=== PATIENT | female | born 1970 | race Caucasian/White ===

== ENCOUNTER 2020-10-20 08:52 | Outpatient (REF) | payer BC, SELFPAY ==
[2020-10-23 08:43] LABS: HPV mRNA E6/E7 rflx Not Detected (Not Detected)
== END 2020-10-20 08:53 | disposition home or self-care (01) ==
LOC: HO.LAB 08:52
PROVIDERS: PCP Internal Medicine; Referring Provider Internal Medicine; Visit Provider Obstetrics & Gynecology
DX: Z01.419 Encounter for gynecological examination (general) (routine) without abnormal findings (principal)
CPT/HCPCS: 87624; 87625; 88142

== ENCOUNTER 2020-12-31 15:26 | Outpatient (REF) | payer BC, SELFPAY ==
--- NOTE | ~2020-12-31 | MM_ITS ---
EXAMINATION: MM SCREENING DIGITAL BREAST TOMOSYNTHESIS, BILATERAL CLINICAL INFORMATION: Screening. Asymptomatic. Prior history reduction mammoplasty 2012. The lifetime risk of breast cancer based on the Tyrer-Cuzick Model is 7%. COMPARISON: Mammography: 09/25/2019, 12/02/2015 TECHNIQUE: Digital breast tomosynthesis is performed in both the craniocaudal and mediolateral oblique views along with computer-aided detection (CAD). Synthesized 2D images are generated from the tomosynthesis. Additional left MLO view is provided. FINDINGS: There are scattered areas of fibroglandular density (ACR BI-RADS breast composition Category b). There are no significant masses, abnormal calcifications, or other abnormalities. Again, there are incidental cysts in the anterior breasts consistent with the prior reduction mammoplasty. Oil cyst on left has benign peripheral rim calcification. The axilla and skin contours are unremarkable. MM/MM tomosynthesis screening BI IMPRESSION: No mammographic evidence of malignancy. ASSESSMENT: BI-RADS 2: Benign RECOMMENDATION: Routine annual mammography screening. This patient's information was entered into a reminder system with a target due date for their next mammogram.
== END 2020-12-31 15:27 | disposition home or self-care (01) ==
LOC: HO.MAMMO 15:26
PROVIDERS: PCP Internal Medicine; Visit Provider Obstetrics & Gynecology
DX: Z12.31 Encounter for screening mammogram for malignant neoplasm of breast (principal)
CPT/HCPCS: 77063; 77067

== ENCOUNTER 2022-01-03 15:37 | Outpatient (REF) | payer BC, SELFPAY ==
--- NOTE | ~2022-01-03 | MM_ITS ---
EXAMINATION: MM SCREENING DIGITAL BREAST TOMOSYNTHESIS, BILATERAL CLINICAL INFORMATION: Screening. Asymptomatic. Prior reduction mammoplasty, 2012. The lifetime risk of breast cancer based on the Tyrer-Cuzick Model is 7%. COMPARISON: Mammography: 12/31/2020, 09/25/2019, 12/02/2015 TECHNIQUE: Digital breast tomosynthesis is performed in both the craniocaudal and mediolateral oblique views along with computer-aided detection (CAD). Synthesized 2D images are generated from the tomosynthesis. FINDINGS: There are scattered areas of fibroglandular density (ACR BI-RADS breast composition Category b). There is minor scarring from the reduction mammoplasty. There are no significant masses, abnormal calcifications, or other abnormalities. Parenchymal pattern is similar to prior studies. Incidental small oil cyst again noted right retroareolar region and and oil cyst anterior upper outer left breast with benign peripheral rim calcification. There are no significant changes. MM/MM tomosynthesis screening BI IMPRESSION: No mammographic evidence of malignancy. ASSESSMENT: BI-RADS 2: Benign RECOMMENDATION: Routine annual mammography screening. This patient's information was entered into a reminder system with a target due date for their next mammogram.
== END 2022-01-03 15:38 | disposition home or self-care (01) ==
LOC: HO.MAMMO 15:37
PROVIDERS: PCP Internal Medicine; Visit Provider Internal Medicine
DX: Z12.31 Encounter for screening mammogram for malignant neoplasm of breast (principal)
CPT/HCPCS: 77063; 77067

== ENCOUNTER 2022-02-16 15:05 | Outpatient (REF) | payer BC, SELFPAY ==
[2022-02-19 07:26] LABS: HPV mRNA E6/E7 rflx Not Detected (Not Detected)
== END 2022-02-16 15:06 | disposition home or self-care (01) ==
LOC: HO.LAB 15:05
PROVIDERS: PCP Internal Medicine; Visit Provider Advanced Practice Midwife
DX: Z01.419 Encounter for gynecological examination (general) (routine) without abnormal findings (principal); R23.2 Flushing; N88.9 Noninflammatory disorder of cervix uteri, unspecified; N92.6 Irregular menstruation, unspecified
CPT/HCPCS: 87624; 88142

== ENCOUNTER 2022-03-23 06:16 | Outpatient (REF) | payer BC, SELFPAY ==
--- NOTE | ~2022-03-23 | XR_ITS ---
EXAMINATION: XR HIP, RIGHT CLINICAL INFORMATION: Pain right hip. COMPARISON: None TECHNIQUE: Two views of the right hip. FINDINGS: The right hip joint space is maintained normal with moderate periarticular spurring. No bony erosive changes. There is no visible acute fracture or dislocation. The soft tissues are normal. XR/XR hip RT min 2V IMPRESSION: Moderate periarticular spurring without bony erosive changes. No visible acute fracture or dislocation seen.
[2022-03-23 11:15] LABS: MANUAL DIFF FLAG NO
[2022-03-23 11:21] LABS: Basophils Percent Auto 0.5 % (0-2); Eosinophils Absolute Auto 0.2 X10*3/uL (0.0-0.4); Eosinophils Percent Auto 1.9 % (0-4); Hematocrit 42.6 % (37.0-47.0); Hemoglobin 14.3 g/dl (12.0-16.0); Imm Gran Abs Auto 0.02 X10*3/uL (0.00-0.03); Imm Gran Pct Auto 0.3 % (0.0-0.4); Lymphocytes Absolute Auto 2.3 X10*3/uL (1.2-4.9); Mean Corpuscular HGB Conc 33.6 g/dl (31.0-35.0); Mean Corpuscular Hemoglobin 29.9 pg (27.0-33.0); Mean Corpuscular Volume 89.1 fL (80.0-98.0); Mean Platelet Volume 10.3 fL (9.4-12.3); Monocytes Absolute Auto 0.6 X10*3/uL (0.1-1.2); Monocytes Percent Auto 7.7 % (2-11); Neutrophils Absolute Auto 4.7 x10*3/uL (2.0-8.3); Neutrophils Percent Auto 60.6 % (45-73); Platelet Count 361 X10*3/uL (160-400); Red Blood Count 4.78 X10*6/uL (4.20-5.50); Red Cell Distribution Width 12.6 % (11.0-16.0); White Blood Count 7.8 X10*3/uL (4.8-10.8)
[2022-03-23 11:50] LABS: Alanine Aminotransferase 25 U/L (0-31); Albumin Level 4.3 g/dL (3.5-5.0); Alkaline Phosphatase 101 U/L (39-117); Anion Gap 13 (12-20); Aspartate Amino Transferase 18 U/L (5-31); Bilirubin Total 0.7 mg/dL (0.0-1.0); Blood Urea Nitrogen 13 mg/dL (9-16); Calcium 9.7 mg/dL (8.4-10.2); Carbon Dioxide 26 mmol/L (22-29); Chloride 106 mmol/L (96-108); Cholesterol 200 mg/dL; Estimated Glomerular Filt Rate > 60; Glucose Fasting 98 mg/dL (60-99); HDL Cholesterol 48 mg/dL; LDL Cholesterol Calculated 130 mg/dl; Potassium 4.6 mmol/L (3.3-5.1); Sodium 140 mmol/L (135-145); Total Protein 7.5 g/dL (6.5-8.0); Triglycerides 110 mg/dL
[2022-03-23 11:59] LABS: TSH reflex Free T4 1.49 uIU/mL (0.32-4.0); Vitamin D 25-OH Total 17.9 ng/mL (>30)
[2022-03-23 12:30] LABS: Folate 7.7 ng/mL (> or = 4.0); Vitamin B12 259 pg/mL (200-900)
== END 2022-03-23 06:17 | disposition home or self-care (01) ==
LOC: HO.HMGCX 06:16
PROVIDERS: Visit Provider Nurse Practitioner Family
DX: Z13.220 Encounter for screening for lipoid disorders (principal); Z13.29 Encounter for screening for other suspected endocrine disorder; M25.551 Pain in right hip; Z76.89 Persons encountering health services in other specified circumstances
CPT/HCPCS: 36415; 73502; 80053; 80061; 82306; 82607; 82746; 84443; 85025

== ENCOUNTER 2022-05-23 15:44 | Outpatient (RCR) | payer BC, SELFPAY ==
--- NOTE | 2022-05-23 16:52 | MHC.PT.EP ---
[facility] [place] Office [place] Office [place] Office [address] [phone] F: [phone] F: [phone] F: [phone] F: [phone] Physical Therapy Plan of Care Date of Evaluation: Date of Surgery: n/a Diagnosis: R hip pain Assessment: Patient is a 51 year old female presenting to PT with complaints of pain in her R hip. Pt reports onset of pain began about 5 years ago with worsening in the last 7 months due to insidious onset. She presents today with pain, ROM, hip strength, and gait mechanics. 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 Clinical presentation today is most consistent with signs and sx associated with R hip pain. Pt is ELKIN candidate and is meeting with her surgeon to scheduled this in the coming weeks. Reviewed expectations for post op as well as HEP to work on preop and pt with great understanding and ability to demonstrate HEP well with ability to teach it back to me today. All of patient's questions were answered today. Skilled PT is not indicated at this time as pt is getting a ELKIN and would prefer to work on these exercises on her own preop. Pt will benefit from skilled PT following her surgery. Frequency and Duration: The patient will be seen n/a Short Term Goals: Pt will demonstrate independence in HEP as evidence by ability to teach it back in 1 session. MET 05/23/2022 Longterm Goals: Treatment Plan: Modalities to reduce pain, spasms and effusion. Manual therapy to restore motion and function. Therapeutic exercise to improve strength and flexibility. Neuromuscular re-education for posture and balance. Therapeutic activities to return to functional activities of daily living. Electronically signed by: Nneka Hutchins, PT, DPT, ATC Please sign and return to therapist. Thank you for your referral.
--- NOTE | 2022-06-23 17:24 | MHC.PT.DC ---
[facility] [place] Office [place] Office [place] Office [address] [phone] F: [phone] F: [phone] F: [phone] F: [phone] Physical Therapy Discharge Report Diagnosis: R hip pain Date of Surgery: n/a Date of Evaluation: 05/23/22 Date of Discharge: 06/23/22 Treatments to Date: 1 Cancellations to Date: 0 No Shows to Date: 0 Discharge Status: Discharge Summary: Pt has not followed up since the evaluation as she was meeting with a surgeon. 30 days has passed and pt has not reached out. Status unknown at this time. Electronically signed by: Nneka Hutchins, PT, DPT, ATC Please sign and return to therapist. Thank you for your referral.
== END 2022-06-23 17:24 | disposition home or self-care (01) ==
LOC: HO.PTCHIC 15:44
PROVIDERS: PCP Nurse Practitioner Family; Visit Provider Nurse Practitioner Family
DX: M25.551 Pain in right hip (principal)
CPT/HCPCS: 97110; 97161

== ENCOUNTER 2023-01-10 14:51 | Outpatient (REF) | payer BC, SELFPAY ==
--- NOTE | ~2023-01-10 | MM_ITS ---
EXAMINATION: MM SCREENING DIGITAL BREAST TOMOSYNTHESIS, BILATERAL CLINICAL INFORMATION: Screening. Asymptomatic. The lifetime risk of breast cancer based on the Tyrer-Cuzick Model is 6.5%. COMPARISON: Mammography: January 03, 2022 and studies dating back to November 27, 2014 TECHNIQUE: Digital breast tomosynthesis is performed in both the craniocaudal and mediolateral oblique views along with computer-aided detection (CAD). Synthesized 2D images are generated from the tomosynthesis. FINDINGS: The breasts are almost entirely fatty (ACR BI-RADS breast composition Category a). There are no new significant masses, abnormal calcifications, or other abnormalities. Postsurgical changes seen bilaterally related to reduction mammoplasty. MM/MM tomosynthesis screening BI IMPRESSION: No significant changes from prior exam. ASSESSMENT: BI-RADS 2: Benign RECOMMENDATION: Routine annual mammography screening. This patient's information was entered into a reminder system with a target due date for their next mammogram.
== END 2023-01-10 14:52 | disposition home or self-care (01) ==
LOC: HO.MAMMO 14:51
PROVIDERS: PCP Internal Medicine; Visit Provider Internal Medicine
DX: Z12.31 Encounter for screening mammogram for malignant neoplasm of breast (principal)
CPT/HCPCS: 77063; 77067

== ENCOUNTER → 2023-02-21 15:10 | Outpatient (BNVA) | payer BC, SELFPAY | PROVIDERS: PCP Internal Medicine; Visit Provider Advanced Practice Midwife | DX: Z01.419 Encounter for gynecological examination (general) (routine) without abnormal findings (principal); N89.8 Other specified noninflammatory disorders of vagina | CPT/HCPCS: 99396 ==

== ENCOUNTER 2023-05-29 14:49 | Outpatient (AMB) | payer BC, SELFPAY ==
--- NOTE | 2023-05-29 14:56 | A.OFFVIS_ITS ---
Intake Vital Signs 05/29/23 14:57 Height 4 ft 10 in Weight 185 lb BMI 38.7 BP 121/78 Blood Pressure Location Lt brachial Position Sitting Pulse 102 H Intake Visit Reasons: pre colonoscopy screening Intake Note: Patient new consult for 1st pre colonoscopy screening. Patient denies any GI issues. Wiener Packer Required: No Accompanied by: Self / Same As Patient Allergies No Known Allergies Allergy (Verified 05/29/23 14:56) HPI HPI Comments History of Present Illness Details A 52 y/o female referred for index screening colonoscopy No GI complaints appetite is good Bowels normal- No cardiac or respiratory No nausea, vomiting, hematemesis, hematochezia fever chills PFSH Medical History Encounter to establish care Obesity Osteoarthritis of right hip Right hip pain Vaginal lesion Surgical History H/O right knee surgery History of bilateral breast reduction surgery History of hip replacement Hx of cholecystectomy Family History Father Prostate cancer Heart disease Mother Skin cancer Social History Housing: House Alcohol intake: current Alcohol intake frequency: holidays/special occasions only Patient Tobacco Use Status: Former Tobacco user e-Cigarette/Vaping Use: Never Used Second Hand Smoke Exposure: Yes service: No Current occupational status: employed 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 Sexual orientation: Straight/Heterosexual Gender identity: Female Cognitive needs: No Hearing needs: No Vision needs: Yes (Glasses) Female Reproductive History Menstrual Age of Menarche: 13 Review of Systems Const All systems reviewed & are unremarkable except as noted in HPI and below Card Denies chest pain and Denies dyspnea Resp Denies dyspnea GI Reports no additional complaints, Denies abdominal pain and Denies heartburn Physical Exam Vital Signs: Last Vital Signs Pulse 102 H 05/29/23 14:57 BP 121/78 05/29/23 14:57 BMI result Body Mass Index 38.7 Const General: cooperative, healthy appearing, comfortable, no acute distress and well groomed Orientation/consciousness: patient oriented x3 Limitations: no limitations Resp Effort & Inspection: normal respiratory effort and able to speak in complete sentences Auscultation: clear to auscultation bilaterally and no wheezes Cardio Rate: tachycardic (apr 100) Rhythm: regular rhythm Heart sounds: S1 normal heart sound present and S2 normal heart sound present Skin General skin exam: no rashes or lesions noted Neuro General: patient oriented x3 Extrem General: Yes full ROM Psych Appearance: grossly normal and well kempt Mental Status: mental status grossly normal Speech and movement: Normal speech and movement present Affect: normal affect Attitude: cooperative Thought process: Normal thought process present Thought content: Normal thought content present Assessment & Plan Assessment & Plan (1) Screening for colon cancer: Code(s): Z12.11 - Encounter for screening for malignant neoplasm of colon Plan: Please schedule with FEMALE pls index screening- MG prep Plan Index screening colonoscopy -MiraLax Gatorade split prep-with female provider Orders: Orders Colonoscopy - GI Use Only 05/29/23 Z12.11 - Encounter for screening for malignant neoplasm of colon Medications: New bisacodyl (Dulcolax (bisacodyl)) Take 4 tablets by mouth at 12:00pm the day before your procedure. 20 mg (4 x 5 mg) PO ONCE 1 day 4 tabs 0RF colonoscopy prep Z12.11 - Encounter for screening for malignant neoplasm of colon polyethylene glycol 3350 (Miralax) Take as directed by mouth the day before your procedure. 238 grams PO ONCE 1 day PRN 238 grams 0RF laxative effect Patient Instructions: Index screening colonoscopy MiraLax Gatorade prep and literature given Needs escort due to anesthesia Reviewed rare risks, agrees to proceed Encourage to call questions or concerns Appreciate the opportunity assist in care as pleasant patient Coding Level of Care Code New Pt Level 3 (27391) Diagnoses Screening for colon cancer Z12.11 Time Spent (min) 20
[2023-05-29 14:57] VITALS: BP 121/78; PULSE 102; BMI 38.7
== END 2023-05-29 16:38 | disposition home or self-care (01) ==
PROVIDERS: PCP Internal Medicine; Visit Provider Physician Assistant
DX: Z01.818 Encounter for other preprocedural examination (principal); Z12.11 Encounter for screening for malignant neoplasm of colon
CPT/HCPCS: S0285

== ENCOUNTER → 2023-05-29 14:49 | Outpatient (BNVA) | payer BC, SELFPAY | PROVIDERS: PCP Internal Medicine; Visit Provider Physician Assistant ==

== ENCOUNTER 2023-10-06 10:39 | Day surgery (SDC) | payer BC, SELFPAY ==
--- NOTE | 2023-10-05 10:27 | HO.ANESPROP2 ---
Documented by User: Shawanda Barillas NP 10/05/23 10:27 HPI - Anesthesia Eval Consult details Narrative: 53yo F for Colonoscopy PMFSH Active Problems Active Problems: All Active Problems (Updated 03/31/23 @ 16:27 by CONOR Yang) Screening for colon cancer (Acute) Vaginal lesion (Acute) Adult general medical exam (Acute) Low vitamin D level (Acute) Obesity (BMI 35.0-39.9 without comorbidity) (Acute) Screening for diabetes mellitus (Acute) Screening for hyperlipidemia (Acute) Screening for hypothyroidism (Acute) Past Medical History Medical History Vaginal lesion Osteoarthritis of right hip Encounter to establish care Right hip pain Obesity Family History Family History Father Prostate cancer Heart disease Mother Skin cancer Surgical History Surgical History Hx of cholecystectomy History of hip replacement H/O right knee surgery History of bilateral breast reduction surgery Social History Social History Housing: House Alcohol intake: current Alcohol intake frequency: holidays/special occasions only Patient Tobacco Use Status: Former Tobacco user e-Cigarette/Vaping Use: Never Used Second Hand Smoke Exposure: Yes Are you DNR?: No Advance Directives: No Advance Directives Information Provided: Yes Nutrition Risks: No Nutritional Risk service: No Current occupational status: employed 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 Sexual orientation: Straight/Heterosexual Gender identity: Female Cognitive needs: No Hearing needs: No Vision needs: Yes (Glasses) Meds Allergies Allergy/AdvReac Type Severity Reaction Status Date / Time No Known Allergies Allergy Verified 05/29/23 14:56 Assessment and Plan Assessment Anesthesia Assessment: Chart Reviewed Documented by User: Prabha Patterson MD 10/06/23 12:01 PMFSH Active Problems Active Problems: All Active Problems (Updated 10/06/23 @ 11:51 by Prabha Patterson MD ) Screening for colon cancer (Acute) Vaginal lesion (Acute) Adult general medical exam (Acute) Low vitamin D level (Acute) Obesity (BMI 35.0-39.9 without comorbidity) (Acute) Screening for diabetes mellitus (Acute) Screening for hyperlipidemia (Acute) Screening for hypothyroidism (Acute) Past Medical History Medical History Vaginal lesion Osteoarthritis of right hip Encounter to establish care Right hip pain Obesity Family History Family History Father Prostate cancer Heart disease Mother Skin cancer Family history of problems with anesthesia: No Surgical History Surgical History Hx of cholecystectomy History of hip replacement H/O right knee surgery History of bilateral breast reduction surgery History of Problems with Anesthesia: Yes (PONV.) Social History Social History Housing: House Alcohol intake: current Alcohol intake frequency: holidays/special occasions only Patient Tobacco Use Status: Former Tobacco user e-Cigarette/Vaping Use: Never Used Second Hand Smoke Exposure: Yes Are you DNR?: No Advance Directives: No Advance Directives Information Provided: Yes Nutrition Risks: No Nutritional Risk service: No Current occupational status: employed 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 Sexual orientation: Straight/Heterosexual Gender identity: Female Cognitive needs: No Hearing needs: No Vision needs: Yes (Glasses) Meds Allergies Allergy/AdvReac Type Severity Reaction Status Date / Time No Known Allergies Allergy Verified 05/29/23 14:56 Exam Height,Weight and Vital Signs: Height 4 ft 11 in Weight 83.915 kg Vital Signs Temp Pulse Resp BP Pulse Ox O2 Del Method 10/06/23 11:49 98.6 F 100 18 124/91 H 96 Room Air Airway Mallampati Class: III TM Dist: >3cm Neck ROM: Full Loose/Missing/Broken Teeth: No (Denies broken, loose, missing teeth) Heart: RRR Lungs: CTAB Assessment and Plan Assessment Anesthesia Assessment: Anesthesia Plan Discussed Final Anesthetic Review Family History of Problems with Anesthesia: No History of Problems with Anesthesia: Yes (PONV.) NPO: Yes (7 hours. Finished prep about 5:15am) ASA Class: II Final Preanesthetic Review: No Changes in Pt Med Stat, Meds/Allgs Chart Reviewed, Consent Obtained/Reviewed and Anes Risks/Benef Reviewed Patient Risk: Intermediate Procedure Risk: Low Assessment/Block/Sedation in SS: Assess/Block/Sedation-SS Anesthetic Plan Anesthetic Plan: MAC: Disposition: Standard PACU
[2023-10-06 11:24] VITALS: BMI 37.4
[2023-10-06 11:49] VITALS: BP 124/91; PULSE 100; RESP 18; TEMP 37; O2SAT 96
--- NOTE | 2023-10-06 11:49 | MHC.SHP ---
Pre-Procedural Eval Section A Date of Service: 10/06/23 The patient is an INPATIENT: No The History & Physical has been completed within 30 days and I have reviewed it.: No Section B Chief Complaint: Colon cancer screening Relevant Family History (Specify if Yes): No Relevant Social History: Tobacco Use (former smoker) Present Medications: see Short Stay Collaborative assessment Medical History: Significant History (Obesity Osteoarthritis of right hip Right hip pain Vaginal lesion) History of Previous Operations: Relevant previous surgery/procedure and date(s) (H/O right knee surgery History of bilateral breast reduction surgery History of hip replacement Hx of cholecystectomy) Allergies: Allergies Allergy/AdvReac Type Severity Reaction Status Date / Time No Known Allergies Allergy Verified 05/29/23 14:56 Plan Diagnosis/Plan: Unchanged I have reviewed the history and physical and performed a pertinent physical examination on my patient. No changes have occurred unless specified. Time Spent With Patient Time: Total time managing care of this patient today ____ minutes.
--- NOTE | 2023-10-06 11:54 | W.PM.OPN ---
Operative Note Operative Note Date of Service: 10/06/23 Narrative: COLONOSCOPY TILL CECUM WITH WITH BIOPSIES Pre-op diagnosis: Colon cancer screening (1st colonoscopy) Post-op diagnosis:? Colon polyps, hemorrhoids Endoscopist:? Nate Laguerre MD Anesthesia:?MAC Consent: Indications for the procedure and potential complications of bleeding, perforation, reaction to medications and missed diagnosis were discussed with the patient and informed consent was obtained. Instrument: Olympus PCF H 190 L variable stiffness pediatric colonoscope and Olympus CF 160 L adult colonoscope Monitoring: Vital signs and clinical assessment, intermittent blood pressure monitoring, continuous EKG monitoring, Pulse oximetry and Carbon Dioxide monitoring were done throughout the procedure. Please see anesthesia flowsheet. Colon withdrawl time was 21 minutes. Procedure: The patient was placed in the left lateral decubitis position and pre-procedure medications were administered. After a digital rectal examination of the ano-rectum, the video colonoscope was inserted into the rectum and advanced through the colon to the transvers colon. It was not possible to advance further due to looping despite changing pt's position. Pediatric colonoscope was removed and an adult colonoscope was inserted into the rectum advanced through the colon to the cecum. The colonoscope was slowly withdrawn in a retrograde panoramic fashion and the colon mucosa was carefully examined including a retroflexed view of the rectum. Findings and interventions are described below. Procedure Difficulty: Colon was long and tortuous and there was recurrent loop formation. Patient was placed in the supine position with application of abdominal pressure to intubate the cecum Findings: Terminal Ileum: Not evaluated Cecum: Normal Ascending Colon: Normal Transverse Colon: Normal Descending Colon: A 4-5 mm sessile polyp removed with a cold bx Sigmoid Colon: A 3-4 mm sessile polyp - removed with a cold biopsy Rectum: A 3-4 mm diminutive appearing polyp - removed with a cold biopsy Ano-rectum: Small internal hemorrhoids Colon preparation: Excellent Impression and Post Procedure Diagnosis: Colonoscopy Findings: Three small polyps removed Small hemorrhoids on retroflexed exam. Plan: I will send a letter with pathology results Repeat Colonoscopy interval based on path results - in 3-5 years if polyps are adenomatous and 10 years if polyps are hyperplastic. Above findings were reviewed with the patient and colon polyps handout was given in the discharge area
[2023-10-06 12:57] VITALS: BP 91/44; PULSE 99; RESP 16; TEMP 36.1; O2SAT 95
[2023-10-06 13:12] VITALS: BP 100/63; PULSE 80; RESP 18; TEMP 36.1; O2SAT 99
== END 2023-10-06 14:30 | disposition home or self-care (01) ==
PROVIDERS: PCP Nurse Practitioner Family; Visit Provider Internal Medicine Gastroenterology
PROC: 0DJD8ZZ Inspection of Lower Intestinal Tract, Via Natural or Artificial Opening Endoscopic (ICD-10-PCS; CPT 45378; principal; 2023-10-06 11:50)
DX: Z12.11 Encounter for screening for malignant neoplasm of colon (principal); K63.5 Polyp of colon; K64.8 Other hemorrhoids; K56.2 Volvulus; Z87.891 Personal history of nicotine dependence
CPT/HCPCS: 45380; 88305; J2405; J2704

== ENCOUNTER → 2023-10-06 10:39 | Outpatient (BNV) | payer BC, SELFPAY | PROVIDERS: PCP Nurse Practitioner Family; Visit Provider Internal Medicine Gastroenterology | DX: Z12.11 Encounter for screening for malignant neoplasm of colon (principal); D12.4 Benign neoplasm of descending colon; D12.5 Benign neoplasm of sigmoid colon; D12.8 Benign neoplasm of rectum; K64.8 Other hemorrhoids | CPT/HCPCS: 45380 ==

== ENCOUNTER 2024-02-15 15:07 | Outpatient (REF) | payer BC, SELFPAY ==
--- NOTE | ~2024-02-15 | MM_ITS ---
EXAMINATION: MM SCREENING DIGITAL BREAST TOMOSYNTHESIS, BILATERAL CLINICAL INFORMATION: Screening. Asymptomatic. The patient is status post bilateral breast reduction. COMPARISON: Mammography: This study is compared with prior exams dating back to TECHNIQUE: Digital breast tomosynthesis is performed in both the craniocaudal and mediolateral oblique views along with computer-aided detection (CAD). Synthesized 2D images are generated from the tomosynthesis. FINDINGS: The breasts are almost entirely fatty (ACR BI-RADS breast composition Category a). There are no significant masses, abnormal calcifications, or other abnormalities. Bilateral post reduction changes are present. MM/MM tomosynthesis screening BI IMPRESSION: No mammographic evidence of malignancy. ASSESSMENT: BI-RADS BI-RADS 2 - Benign Findings RECOMMENDATION: Routine annual mammography screening. 1 year F/U This examination should not preclude the clinical evaluation of a suspicious palpable abnormality. This patient's information was entered into a reminder system with a target due date for their next mammogram.
== END 2024-02-15 15:08 | disposition home or self-care (01) ==
LOC: HO.MAMMO 15:07
PROVIDERS: PCP Internal Medicine; Visit Provider Internal Medicine
DX: Z12.31 Encounter for screening mammogram for malignant neoplasm of breast (principal)
CPT/HCPCS: 77063; 77067

== ENCOUNTER → 2024-02-15 15:30 | Outpatient (BNV) | payer BC, SELFPAY | PROVIDERS: PCP Internal Medicine; Visit Provider Radiology Diagnostic Radiology | DX: Z12.31 Encounter for screening mammogram for malignant neoplasm of breast (principal) | CPT/HCPCS: 77063; 77067 ==

== ENCOUNTER 2024-04-10 14:56 | Outpatient (AMB) | payer BC, SELFPAY ==
--- NOTE | 2024-04-10 15:01 | A.OFFPC_ITS ---
Vital Signs 04/10/24 15:04 Height 4 ft 11 in Weight 195 lb 6 oz BMI 39.5 BP 120/62 Blood Pressure Location Lt brachial Position Sitting Pulse 82 Pulse Source Pulse Oximeter Pulse Oximetry (%) 96 Oxygen Delivery Method Room Air Intake Visit Reasons: annual exam/transfer care Swathi [facility] Note: Patient is here today for a physical and MAR[employer] from [employer] Required: No Alarm Mechanism Adjuster: Not Required per policy Accompanied by: Self / Same As Patient Allergies No Known Allergies Allergy (Verified 04/10/24 15:04) Tobacco use date assessed: 04/10/24 Dental Screening Dental Screen Date: 04/10/24 Did you have a dental visit in the last 12 months?: Yes Did you have a dental problem in the last 6 months where you did not have access to dental care?: No Was dental information given to patient?: Patient has dentist HPI annual exam/transfer care Swathi HPI Details 53-year-old female presents to the offic e to discuss her chronic medical conditions. Patient currently on no medications. She is compliant with diet. Continues to work. Her last colonoscopy was in 2022 at [facility]. [facility] Medical History Vaginal lesion Osteoarthritis of right hip Encounter to establish care Right hip pain Obesity Surgical History Hx of cholecystectomy History of hip replacement H/O right knee surgery History of bilateral breast reduction surgery Family History Father Prostate cancer Heart disease Mother Skin cancer Social History Housing: House Alcohol intake: current Alcohol intake frequency: holidays/special occasions only Patient Tobacco Use Status: Former Tobacco user e-Cigarette/Vaping Use: Never Used Second Hand Smoke Exposure: Yes service: No Current occupational status: employed 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 1. Little interest or pleasure in doing things: not at all 2. Feeling down, depressed, or hopeless: not at all 3. Trouble falling or staying asleep, or sleeping too much: not at all 4. Feeling tired or having little energy: not at all 5. Poor appetite or overeating: not at all 6. Feeling bad about yourself - or that you are a failure or have let yourself or your family down: not at all 7. Trouble concentrating on things, such as reading the newspaper or watching television: not at all 8. Moving or speaking so slowly that other people could have noticed. Or the opposite - being so fidgety or restless that you have been moving around a lot more than usual: not at all 9. Thoughts that you would be better off or of hurting yourself in some way: not at all Total score: 0 Depression Screening Interpretation: Negative Depression Screening Done: Yes Source: Developed by Drs. Kiel Merritt, Светлана Cooley, Babar Cox and colleagues, with an educational carrie from [employer]. Thrive Questionnaire Date Thrive assessed: 04/10/24 I am a: Patient What is your living situation today?: I have a steady place to live Within the past 12 months, did the food you bought not last and you didn't have the money to get more?: Never true Within the past 12 months, did you worry whether your food would run out before you got money to buy more?: Never true Do you have trouble paying for medicines?: No Do you have trouble getting transportation to medical appointments?: No Do you have trouble paying your heating and electricity bill?: No Do you have trouble taking care of your child, family member or friend?: No Do you have trouble with day-to-day activities such as bathing, preparing meals, shopping, managing finances, etc.?: No Are you currently unemployed and looking for a job?: No Are you interested in more education?: No Currently or been in a relationship where the following occur: no concerns reported THRIVE Score: 0 AUDIT C Alcohol Use Questionnaire (AUDIT-C) 1. How often do you have a drink containing alcohol?: Monthly or less 2. How many drinks containing alcohol do you have on a typical day when you are drinking?: 1 or 2 Total Score: 1 BRY-7 AMB Questionnaire BRY-7 Date BRY - 7 assessed: 04/10/24 Feeling nervous, anxious, or on edge: 0 = Not at all Not being able to stop or control worryin = Not at all Worrying too much about different things: 0 = Not at all Trouble relaxin = Not at all Being so restless that it is hard to sit still: 0 = Not at all Becoming easily annoyed or irritable: 0 = Not at all Feeling afraid as if something awful might happen: 0 = Not at all Total BRY-7 score (0-4 normal; 5-9 mild; 10-14 moderate; 15-21 severe): 0 Source: Developed by Drs. Kiel Merritt, Светлана Cooley, Babar Cox and colleagues, with an educational carrie from [employer]. Physical exam (Primary Care) Vital Signs: Last Vital Signs Pulse 82 04/10/24 15:04 BP 120/62 04/10/24 15:04 Pulse Ox 96 04/10/24 15:04 Oxygen Delivery Method Room Air 04/10/24 15:04 Care Plan Goal for BP management: Blood pressure is in range. Continue current medications. BMI result Body Mass Index 39.5 BMI Assessment/Plan discussion: High (1 lb per week weight loss suggested.) BMI High, discussed plan: lifestyle, weight reduction and dietary Tobacco/Smoking Status: Tobacco use Status Tobacco use date assessed 04/10/24 04/10/24 15:08 Patient Tobacco Use Status Former Tobacco user 04/10/24 15:01 e-Cigarette/Vaping Use Never Used 04/10/24 15:01 PHQ-9: PHQ-9 Score PHQ-9: Total score 0 04/10/24 15:08 Depression Screening Interpretation: Negative Thrive Assessment: Date of Thrive Assessment Date Thrive assessed 04/10/24 04/10/24 15:08 Currently or been in a relationship where the following occur: no concerns reported Const General: cooperative and healthy appearing Nutritional Appearance: well nourished Orientation/consciousness: patient oriented x3 Limitations: no limitations HENMT Head: Yes normal to inspection Eyes General: appearance normal, both eyes and all related structures Neck Neck: Yes normal visual inspection Chest Chest palpation & inspection: normal palpation of entire chest wall Resp Effort & Inspection: normal respiratory effort Neuro General: patient oriented x3 Assessment and Plan Assessment & Plan (1) Obesity (BMI 35.0-39.9 without comorbidity): Code(s): E66.9 - Obesity, unspecified Plan: Counseling on the importance of diet and exercise done. Blood work has been ordered. Will call with the results. Orders: Orders Basic Metabolic Panel Today E66.9 - Obesity, unspecified Liver Panel Today E66.9 - Obesity, unspecified Lipid Panel Today E66.9 - Obesity, unspecified Thyroid Stimulating Hormone Today E66.9 - Obesity, unspecified UA and rflx microscopic Today E66.9 - Obesity, unspecified Coding Level of Care Code Est Pt Level 4 (26426) Complex EM visit Add On G2211 Diagnoses Obesity (BMI 35.0-39.9 without comorbidity) E66.9
[2024-04-10 15:04] VITALS: BP 120/62; PULSE 82; O2SAT 96; BMI 39.5
== END 2024-04-10 15:46 | disposition home or self-care (01) ==
PROVIDERS: PCP Internal Medicine; Visit Provider Internal Medicine
DX: E66.9 Obesity, unspecified (principal); Z68.39 Body mass index [BMI] 39.0-39.9, adult
CPT/HCPCS: 99214; 99396

== ENCOUNTER 2024-07-05 08:09 | Outpatient (REF) | payer BC, SELFPAY ==
[2024-07-05 10:08] LABS: Appearance Urine Cloudy; Color Urine Yellow; Glucose Urine UA Negative (Negative); Leukocyte Esterase Urine Large (3+) (Negative); Nitrite Urine Negative (Negative); PH 5.5 (5.0-9.0); Specific Gravity - Urine 1.015 (1.005-1.025); UMIC TRIGGER UA YES; Urine Blood Trace (Negative); Urine Ketones Negative (Negative); Urine Protein Trace mg/dL (Neg-Trace)
[2024-07-05 10:31] LABS: Bacteria Urine 2+ (None Seen); RBC Urine 0-2 /HPF (0-2); Renal Epithelial Cells Urine Present; Squamous Epithelial Cell Urine >20 /HPF (0-2); Transitional Epi Cells Urine Present; WBC Urine >50 /HPF (0-5)
[2024-07-05 10:55] LABS: Alanine Aminotransferase 12 U/L (0-31); Albumin Level 4.3 g/dL (3.5-5.0); Alkaline Phosphatase 103 U/L (39-117); Anion Gap 12 (12-20); Aspartate Amino Transferase 16 U/L (5-31); Bilirubin Direct 0.2 mg/dL (0.0-0.5); Bilirubin Total 0.5 mg/dL (0.0-1.0); Blood Urea Nitrogen 17 mg/dL (9-16); Calcium 9.6 mg/dL (8.4-10.2); Carbon Dioxide 25 mmol/L (22-29); Chloride 108 mmol/L (96-108); Cholesterol 184 mg/dL (<200); Estimated Glomerular Filt Rate > 60; Glucose Random 94 mg/dL (60-115); HDL Cholesterol 51 mg/dL (>40); LDL Cholesterol Calculated 114 mg/dL (<100); Potassium 4.2 mmol/L (3.3-5.1); Sodium 141 mmol/L (135-145); Thyroid Stimulating Hormone 1.83 uIU/mL (0.32-4.0); Total Protein 7.8 g/dL (6.5-8.0); Triglycerides 96 mg/dL (<150)
== END 2024-07-05 08:10 | disposition home or self-care (01) ==
LOC: HO.HMGCLDS 08:09
PROVIDERS: PCP Internal Medicine; Visit Provider Internal Medicine
DX: Z00.00 Encounter for general adult medical examination without abnormal findings (principal); Z13.220 Encounter for screening for lipoid disorders; Z13.29 Encounter for screening for other suspected endocrine disorder; Z13.1 Encounter for screening for diabetes mellitus
CPT/HCPCS: 36415; 80048; 80061; 80076; 81001; 84443

== ENCOUNTER 2024-12-20 17:17 | Emergency (ER) | payer BC, SELFPAY ==
--- NOTE | ~2024-12-20 | CT_ITS ---
CLINICAL HISTORY: post op sob ?PE CT angiography chest with contrast. With MIP MPR Postprocessing. Comparison: None Findings: No central pulmonary embolism. Minimal subsegmental atelectasis. No pneumothorax or pleural effusion. Heart size is at the upper limits of normal. Nonenlarged mediastinal lymphadenopathy. Mild fat deposition in the imaged liver. Gallbladder is surgically absent. No acute osseous abnormality. IMPRESSION: 1. No central pulmonary embolism. 2. Mild bibasilar atelectasis. This document has been electronically signed by: Garth Blackwood MD on 12/20/2024 21:54:38
[2024-12-20 17:21] VITALS: BP 150/92; PULSE 117; RESP 22; TEMP 36.5; O2SAT 99; BMI 38.0
--- NOTE | 2024-12-20 17:21 | ED.GENADULT ---
HPI - General Adult General Chief complaint: Dyspnea Stated complaint: CAT Scan ordered Time Seen by Provider: 12/20/24 21:08 Source: patient Mode of arrival: ambulatory Limitations: no limitations History of Present Illness ED Provider: HPI narrative: Patient is status post left hip replaced on 5 weeks ago ambulatory as such for last 1 week noticed shortness a breath even on mild exertion no wheezing no leg swelling patient has had Doppler done of the left leg which was negative for DVT patient is saturating 99% at room air not in any distress but feels short winded when she walks no cough no chest pain Related Data Home Medications ?Medication ?Instructions ?Recorded ?Confirmed No Known Home Meds 04/10/24 04/10/24 Allergies Allergy/AdvReac Type Severity Reaction Status Date / Time No Known Allergies Allergy Verified 12/20/24 17:27 Review of Systems Review of Systems: Yes all other systems are reviewed and are negative PMFSH Past Medical History Medical History Vaginal lesion Osteoarthritis of right hip Encounter to establish care Right hip pain Obesity Surgical History Hx of cholecystectomy History of hip replacement H/O right knee surgery History of bilateral breast reduction surgery Family History Family History Father Prostate cancer Heart disease Mother Skin cancer Social History Social History Housing: House Alcohol intake: current Alcohol intake frequency: holidays/special occasions only Patient Tobacco Use Status: Former Tobacco user e-Cigarette/Vaping Use: Never Used Second Hand Smoke Exposure: Yes Advance Directives Date on File: 04/21/21 service: No Current occupational status: employed 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 Oriented X3. No acute distress. Eyes: PERRLA, No Nystagmus ENT: Pharynx normal. Oral Mucosa moist Neck: Normal inspection. Neck supple. CVS: Normal heart rate and rhythm. Pulses normal. Respiratory: No respiratory distress. Equal air entry bilateral, no wheezing/rales/rhonchi Abdomen: Soft and nontender. Bowel sounds are present, no mass palpable, no CVA tenderness Skin: Skin warm and dry. Normal skin color. Normal skin turgor. Extremities: No lower extremity edema. No calf tenderness Neuro: Oriented X 3. No motor deficit. No sensory deficit.No cerebellar signs , cranial nerves II-XII intact Course Course Course Narrative: 54-year-old female with a history of morbid obesity, osteoarthritis, now status post right total hip replacement 5 weeks ago, presents from the orthopedic office given concern for PE. Patient was noted to be tachycardic and short of breath during her postop visit, she was sent here by her surgeon to rule out PE. She had a DVT study as an outpatient, it was negative. Patient denies chest pain. We will be screening basic labs, troponin BNP, D-dimer and EKG. The patient is stable and can return to the waiting room pending her full medical assessment. Medications Administered Discontinued Medications Generic Name Dose Route Start Last Admin Trade Name Freq PRN Reason Stop Dose Admin Iohexol 65 ml 12/20/24 21:35 12/20/24 21:36 Iohexol 350 Mg/Ml 100 Ml Infus..Btl IV 12/20/24 21:36 65 ml ONCE ONE Administration Medical Decision Making Medical Decision Making [facility] Narrative: Patient nonspecific shortness a with no objective findings CTA chest negative for PE labs are stable no signs of CHF Differential Diagnosis Differential Diagnoses: The differential diagnosis associated with the presentation includes PE/CHF/anxiety/bronchitis Lab Data [facility] Lab Attestation statement: I reviewed the patient's lab results. 12/20/24 17:48 12/20/24 17:48 Labs: Lab Results 12/20/24 Range/Units 17:48 WBC 9.2 (4.8-10.8) X10*3/uL RBC 4.61 (4.20-5.50) X10*6/uL Hgb 13.6 (12.0-16.0) g/dl Hct 40.5 (37.0-47.0) % MCV 87.9 (80.0-98.0) fL MCH 29.5 (27.0-33.0) pg MCHC 33.6 (31.0-35.0) g/dl RDW 13.0 (11.0-16.0) % Plt Count 294 (160-400) X10*3/uL MPV 9.5 (9.4-12.3) fL Immature Gran % (Auto) 0.3 (0.0-0.4) % Neut % (Auto) 63.1 (45-73) % Lymph % (Auto) 26.8 (20-40) % Ector % (Auto) 7.3 (2-11) % Eos % (Auto) 1.9 (0-4) % Baso % (Auto) 0.6 (0-2) % Lymph # (Auto) 2.5 (1.2-4.9) X10*3/uL Ector # (Auto) 0.7 (0.1-1.2) X10*3/uL Eos # (Auto) 0.2 (0.0-0.4) X10*3/uL Baso # (Auto) 0.1 (0.0-0.2) X10*3/uL Abs Immat Gran (auto) 0.03 (0.00-0.03) X10*3/uL Absolute Neuts (auto) 5.8 (2.0-8.3) x10*3/uL Absolute Nucleated RBC 0.000 (0.0-0.012) X10*3/uL Nucleated RBC % (auto) 0.0 (0.0-0.2) /100WBC D-Dimer High Sensitivty 282 NG/ML Sodium 139 (135-145) mmol/L Potassium 4.4 (3.3-5.1) mmol/L Chloride 106 (96-108) mmol/L Carbon Dioxide 24 (22-29) mmol/L Anion Gap 13 (12-20) BUN 16 (9-16) mg/dL Creatinine 0.77 (0.5-1.4) mg/dL Estim Creat Clear Calc 78.3 Estimated GFR > 60 Random Glucose 94 (60-115) mg/dL Calcium 9.8 (8.4-10.2) mg/dL Magnesium 2.1 (1.6-2.6) mg/dL Total Bilirubin 0.5 (0.0-1.0) mg/dL AST 25 (5-31) U/L ALT 18 (0-31) U/L Alkaline Phosphatase 117 (39-117) U/L Troponin I High Sens < 2.7 (<3.5-17.0) ng/L B-Natriuretic Peptide < 10 (<100) pg/mL Total Protein 8.1 H (6.5-8.0) g/dL Albumin 4.3 (3.5-5.0) g/dL Independent Interpretation I performed an independent interpretation of an: CT Scan Interpretation: No emboli Radiology Impression Discussion of test interpretation with radiology: I have reviewed the radiologist's reading. Radiologist Impression: NAD Discharge Plan Discharge Clinical Impression: Dyspnea Patient Disposition: Home, Self-Care Instructions: Dyspnea (ED) Additional Instructions: Cause of shortness a breath is not clear your CT scan of the chest is negative for blood clots Your oxygenation is also normal Take deep breaths and continue to ambulate and do your activities Prescriptions: No Action No Known Home Meds Interventions: ED Discharge Assessment Last Done: 12/20/24 22:58 Discharge Date/Time: 12/20/24 23:06 Print Language: Upper Sorbian
--- NOTE | 2024-12-20 17:24 | ECG_ITS ---
Test Reason : SOB Blood Pressure : */* mmHG Vent. Rate : 85 BPM Atrial Rate : 85 BPM P-R Int : 138 ms QRS Dur : 76 ms QT Int : 380 ms P-R-T Axes : 23 16 23 degrees QTcB Int : 452 ms Normal sinus rhythm Normal ECG No previous ECGs available Referred By: Felicita Landavrede Electronically Signed By: MARCI CHANDLER
[2024-12-20 17:55] LABS: MANUAL DIFF FLAG NO
[2024-12-20 17:58] LABS: Basophils Absolute Auto 0.1 X10*3/uL (0.0-0.2); Basophils Percent Auto 0.6 % (0-2); Eosinophils Absolute Auto 0.2 X10*3/uL (0.0-0.4); Eosinophils Percent Auto 1.9 % (0-4); Hematocrit 40.5 % (37.0-47.0); Hemoglobin 13.6 g/dl (12.0-16.0); Imm Gran Abs Auto 0.03 X10*3/uL (0.00-0.03); Imm Gran Pct Auto 0.3 % (0.0-0.4); Lymphocytes Absolute Auto 2.5 X10*3/uL (1.2-4.9); Lymphocytes Percent Auto 26.8 % (20-40); Mean Corpuscular HGB Conc 33.6 g/dl (31.0-35.0); Mean Corpuscular Hemoglobin 29.5 pg (27.0-33.0); Mean Corpuscular Volume 87.9 fL (80.0-98.0); Mean Platelet Volume 9.5 fL (9.4-12.3); Monocytes Absolute Auto 0.7 X10*3/uL (0.1-1.2); Monocytes Percent Auto 7.3 % (2-11); Neutrophils Absolute Auto 5.8 x10*3/uL (2.0-8.3); Neutrophils Percent Auto 63.1 % (45-73); Platelet Count 294 X10*3/uL (160-400); Red Blood Count 4.61 X10*6/uL (4.20-5.50); White Blood Count 9.2 X10*3/uL (4.8-10.8)
[2024-12-20 18:05] LABS: D Dimer High Sensitivity 282 NG/ML
[2024-12-20 18:12] LABS: Alanine Aminotransferase 18 U/L (0-31); Albumin Level 4.3 g/dL (3.5-5.0); Alkaline Phosphatase 117 U/L (39-117); Anion Gap 13 (12-20); Aspartate Amino Transferase 25 U/L (5-31); Bilirubin Total 0.5 mg/dL (0.0-1.0); Blood Urea Nitrogen 16 mg/dL (9-16); Calcium 9.8 mg/dL (8.4-10.2); Carbon Dioxide 24 mmol/L (22-29); Chloride 106 mmol/L (96-108); Creatinine Clr Calc Pharmacy 78.3; Estimated Glomerular Filt Rate > 60; Glucose Random 94 mg/dL (60-115); Magnesium 2.1 mg/dL (1.6-2.6); Potassium 4.4 mmol/L (3.3-5.1); Sodium 139 mmol/L (135-145); Total Protein 8.1 g/dL (6.5-8.0)
[2024-12-20 18:18] LABS: B Type Natriuretic Peptide < 10 pg/mL (<100)
[2024-12-20 18:21] LABS: Troponin-I High Sensitivity < 2.7 ng/L (<3.5-17.0)
[2024-12-20 20:30] VITALS: BP 127/77; PULSE 75; RESP 12; TEMP 36.6; O2SAT 99
--- OUTSIDE RECORDS SUMMARY | 2024-12-20 20:48 | XMS_ITS | Continuity of Care Document ---
Author Organization [facility], KRUPA [facility] 2nd floor Address [address] [place] [address] Care Team Providers Care Photonics Engineering Technologist Name Role Phone GURVINDER ANNAMARIE Primary Care Provider Assessment Encounter Date Assessment Date Assessment LastModified by Organization Details LastModified Time 12/20/2024 12/20/2024 Imaging: Imaging ordered, independently reviewed and interpreted by Caio Arellano MD reveals the following findings: XR Hip Left hip: Two views of the hip were obtained including AP pelvis and groin lateral views. Status post hip surgery: Status post ELKIN with no evidence of complication, well fixed, well aligned, and located. There is good restorationism of leg length and offset without loosening or migration. XR Knee Left Knee: Four views of the knee were obtained including AP, burkett, sunrise, and lateral views. Mild DJD present. Changes consistent with osteoarthritis including subtle joint space narrowing. Arthrosis primariliy affects the medial compartment. Alignment: neutral Impression: Status post left anterior total hip arthroplasty, 6 weeks out Plan: The patient is doing well, continue activities as tolerated. We arranged for an immediate venous duplex ultrasound that she has had performed now as of the riding of this note. There is no evidence of deep vein thrombosis on the ultrasound but she was also tachycardic at the imaging center, I discussed with the phone with her and we are advising her to go to the emergency department for a CT angiogram to evaluate for possible pulmonary embolism. Not available 12/20/2024 16:29:45 Plan of Treatment Reminders Order Date Submit Date Provider Last Modified By Organization Details Last Modified Time Details Appointments POST OP 10 2024 03:20P Khalida Arellano MD Not available Not available Not available Lab None recorded . Referral None recorded . Procedures None recorded . Surgeries None recorded . Imaging XR, knee, 4 or more view - 201 l knee 4v 2024 025 [facility], [address], [place], [address], 12/20/2024 15:45:51 XR, hip + pelvis, unilater al, 2 or 3 view - 201 lthr 2v p/o 2024 025 [facility], [address], [place], [address], 12/20/2024 15:39:49 US, duplex, venous, lower extremit y - left le pain and swelling , r/o DVT. s/p ALTHR 2024 025 [facility], [address], [place], [address], 12/20/2024 17:16:09 Medication Orders amoxicil frantz 500 mg capsule 2024 025 [place] [id number], [address] [place], [address], 12/20/2024 15:31:43 Patient TargetsNo targets recorded. Patient InstructionsNo instructions recorded. Reason for Referral None Reported. Results Created Date Observation Date Name Description Value Unit Range Abnormal Flag Note LastModifiedBy Organization Detail LastModifiedTime 11/26/19 25 11/26/2024 XR, hip + pelvi s, unila teral , 2 or 3 view [email or web address]:/ [email or web address] ?Encry pted=s hAaTro YD8dLq bEUv6g %2BXZw aYqtaq 0bqfl% 2Fg9IQ a4ajBk vP9nXo QUaueC m3YtLR FvZlgJ JJ8mAn HZtai3 3f2118 AC0Kqb H2HVae jKiQtr MwF INTERFACE [facility] [address] [facility] [address], [place], [address], 11/26/2024 15:38:23 11/26/19 25 11/26/2024 XR, hip + pelvi s, unila teral , 2 or 3 view http:/ [email or web address] ?Encry pted=s hAaTro YD8dLq bEUv6g %2BXZw aYqtaq 0bqfl% 2Fg9IQ a4ajBk vP9nXo QUaueC m3YtLR FvZlgJ JJ8mAn HZtai3 9b9059 AC0Kqb H2HVae jKiQtr MwF INTERFACE [facility] [address] [facility] [address], [place], [address], 11/26/2024 15:38:25 12/20/19 25 12/20/2024 XR, hip + pelvi s, unila teral , 2 or 3 view http:/ [email or web address] ?Encry pted=s hAaTro YD8dLq bEUv6g %2BXZw aYqtaq 0bqfl% 2Fg9IQ a4ajBk vP9nXo QUaueC m3YtLR FvZlgJ JJ8mAn HZtai3 3d8648 AC0Kqb X%2BAV KanKiQ trMwF INTERFACE [facility] [address] [facility] [address], [place], [address], 12/20/2024 15:39:50 12/20/19 25 12/20/2024 XR, hip + pelvi s, unila teral , 2 or 3 view http:/ [email or web address] ?Encry pted=s hAaTro YD8dLq bEUv6g %2BXZw aYqtaq 0bqfl% 2Fg9IQ a4ajBk vP9nXo QUaueC m3YtLR FvZlgJ JJ8mAn HZtai3 5x9507 AC0Kqb X%2BAV KanKiQ trMwF INTERFACE [facility] [address], [place], [address], 12/20/2024 15:39:52 12/20/19 25 12/20/2024 XR, knee, 4 or more view http:/ [email or web address] ?Encry pted=s hAaTro YD8dLq bEUv6g %2BXZw aYqtaq 0bqfl% 2Fg9IQ a4ajBk vP9nXo QUaueC m3YtLR FvZlgJ JJ8mAn HZtai3 2o2988 AC0Kqb X%2BAV KekKiQ trMwF INTERFACE [facility] [address], [place], [address], 12/20/2024 15:45:51 12/20/19 25 12/20/2024 XR, knee, 4 or more view http:/ [email or web address] ?Encry pted=s hAaTro YD8dLq bEUv6g %2BXZw aYqtaq 0bqfl% 2Fg9IQ a4ajBk vP9nXo QUaueC m3YtLR FvZlgJ JJ8mAn HZtai3 3n0601 AC0Kqb X%2BAV KekKiQ trMwF INTERFACE [facility] [address] [facility] [address], [place], [address], 12/20/2024 15:45:53 12/20/19 25 12/20/2024 US, duple x, venou s, lower extre mity No observ ation record ed. ANANTH [facility] [address], [place], [address], 12/20/2024 17:16:10 Result Notes None recorded. Problems Name Problem SNOMED Code Status Onset Date Resolution Date Notes Provider Name and Address Organization Details Recorded Time Pain of left hip joint 0253044668933 00 Active 2023 PATRICA fofana [place] - [facility] 4 10:26:40 Osteoarthr itis of left hip joint 2901476182071 08 Active 2023 Caio Arellano MD [address], [place], [address] , [facility] 4 16:27:10 Pain of left knee joint 4401342108645 07 Active 2024 PATRICA fofana [facility] 5 15:31:00 Pain of left lower leg 9554264521350 01 Active 2024 PATRICA fofana [facility] 5 15:35:28 History of repair of hip joint 172556199 Active 2024 Caio Arellano MD [address], [place], [address] , [facility] 5 16:29:08 Problem Notes None recorded. Procedures Surgical History Date Name Laterality Status Provider Name and Address Organization Details Recorded Time 4 [facility] completed Aidee Quach PA-C [address], [place], [address], [facility] 07/16/2024 09:09:32 2 Hip Surgery completed Yaa Awan [facility] 07/16/2024 13:28:33 Imaging Results None recorded. Procedure Notes None recorded. Medical Equipment None Reported. Allergies Allergen ID Allergen Name Allergen Category Reaction Reaction Severity Criticality Documentation Date Start Date Code Code System Note Provider Name and Address Organization Details Recorded Time 166099 No known allergy (situatio n) Not available Not available Not available Not available 07/16/2024 06289 6003 SNOMED Yaa fofana [facility] 4 13:28:33 No known drug allergies Medications Name Sig Start Date Stop Date Status Note LastModified by Organization Details LastModified Time celecoxib 200 mg capsule Take 1 capsule every day by oral route for 30 days. 12/20 completed Not Available Not Available Not Available amoxicillin 500 mg capsule 4 pills 1 hour prior to DENTAL APPT 2024 active Not Available Not Available Not Avai lable meloxicam 15 mg tablet TAKE 1 TABLET BY MOUTH EVERY DAY 11/26 completed Not Available Not Available Not Available ondansetron HCl 4 mg tablet TAKE 1 TABLET BY MOUTH EVERY 8 HOURS NEEDED FOR NAUSEA AND VOMITING 11/26 completed Not Available Not Available Not Available tramadol 50 mg tablet TAKE 1 TO 2 TABLETS BY MOUTH EVERY 6 HOURS NEEDED FOR MILD PAIN. DO NOT EXCEED 8 TABLETS (400MG) PER DAY. 11/26 completed Not Available Not Available Not Available acetaminoph en 500 mg tablet Take 2 tablets 3 times a day by oral route. 2024 active Not Available Not Available Not Avai lable aspirin 325 mg tablet,lesly yed release TAKE 1 TABLET BY MOUTH TWO TIMES A DAY 12/20 completed Not Available Not Available Not Available pantoprazol e 40 mg tablet,lesly yed release TAKE 1 TABLET BY MOUTH EVERY DAY 11/26 completed Not Available Not Available Not Available docusate sodium 100 mg capsule TAKE 1 CAPSULE BY MOUTH TWO TIMES A DAY NEEDED FOR CONSTIPAT ION 11/26 completed Not Available Not Available Not Available oxycodone 5 mg tablet TAKE 1 TO 2 TABLETS BY MOUTH EVERY 4 HOURS NEEDED FOR SEVERE PAIN 11/26 completed Not Available Not Available Not Available Vitals Date Recorded Body height Body mass index (BMI) Body weight Provider Name and Address Organization Details Last Updated DateTime 12/20/2024 152.4 cm 38.7 kg/m2 87758.29 g PATRICA RUELAS [place] - [facility] 12/20/2024 15:25:37 Social History Question Answer Notes LastModified by Organizat ion Details LastModified Time How Many Times Per Week Do You Consume Alcohol? Less Than 1 Time Per Week Information not available 07/16/2024 What Is Your Relationship Status? Information not available 07/16/2024 Do You Use Any Illicit Or Recreational Drugs? No Information not available 07/16/2024 Do You Or Have You Ever Used Any Other Forms Of Tobacco Or Nicotine? No Information not available 07/16/2024 Sex: Unknown Functional Status None recorded. Mental Status None recorded. Family History Nothing Reported. Medical History No medical history recorded. Gynecological HistoryNo gynecological history recorded. Obstetrics History GPAL:G 0 P 0 0 0 0 Past Encounters Encounter ID Performer Location Encounter Start Date Encounter Closed Date Diagnosis/Indication Diagnosis SNOMED-CT Code Diagnosis ICD10 Code Diagnosis Note [id number] [facility] 2[address] floor [address] [place] [address] 11/26/2024 15:04:28 12/09/2024 11:22:34 History of total replacement of left hip joint 1460334197 026166 Z96.642 The patient will continue with physical therapy and advance as tolerated. Continue with an assistive device as needed to help with ambulation . Will continue DVT prophylaxi s as scheduled. Total hip precaution s were reviewed. Pain medication s refills as needed. Follow-up as scheduled, sooner if any problems arise. All questions and concerns were addressed and answered. [id number] MD [facility]RUPA [facility] [address] [place] [address] 12/20/2024 15:17:07 12/20/2024 16:30:03 History of repair of hip joint 289851407 Z96.642 Pain of le ft knee joint 2921608308 15935 M25.562 Pain of le ft lower leg 9604049247 40652 M79.662 M79.89 Health Concerns Section Related Observation LastModified by Organization Detai ls LastModified Time None Recorded Concern Status LastModified by Organization Details LastModified Time None Recorded Payers Encounter Date Sequence Insurance Name Policy Number Policy Grullon Covered Member ID Grullon Member ID Guarantor Name 12/20/2024 1 [employer]: MERI BCDALE [id number] 3 Isabella Villa Treeger [id number] BF Isabella Villa Treeeder Notes Date Note Type Note Provider Name and Address Organization Details Recorded Time text/html History of present illness:This patient follows up today and is now 6 weeks out from left anterior total hip arthroplasty. Their pain is well controlled and they are progressing as expected with physical therapy. Able to do current activities without significant difficulty. She is having some slightly increased pain in her knee compared to the contralateral side in her recovery and she states that this recovery has been somewhat more difficult than her contralateral side but she does notice continual improvement.She reports about 2 weeks of leg and calf pain and some recent shortness of breath. I took her pulse today and she was tachycardic above 100 bpm, she did not have any swelling in her left lower extremity or tenderness to palpation in the posterior calf or thigh but given the constellation of findings with tachycardia and shortness of breath I am highly concerned for the possibility of a venous thromboembolismPast family, medical, social history and review of systems has been reviewed and updated, and is located in the patient? s chart. Caio Arellano MD [address] [place] [address] [address], [place], [address], [facility] - [facility] 12/20/2024 16:30:00 OBGyn Episode No OBEpisode recorded.
--- OUTSIDE RECORDS SUMMARY | 2024-12-20 20:48 | XMS_ITS | Data Portability ---
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 Severe DJD present. Changes consistent with osteoarthritis including joint space narrowing, subchondral sclerosis, and osteophyte formation. Arthrosis primarily affects the superior compartment. Impression: Left hip osteoarthritis Plan: Will plan for anterior approach. I recommend a total hip arthroplasty for relief of their hip disease. They have exhausted conservative measures. Their symptoms are significant enough to warrant replacement. I informed the patient that the goal is to offer significant pain relief for about 15 years, and hopefully this also improves their hip function. Activities can be resumed after surgery, however running and jumping are discouraged. They agree to this procedure. Prior to surgery the patient needs to have the following: CBC, CMP, medical clearance, Indications for surgery: Advanced joint disease demonstrated by: X-ray Failure of conservative management Unsuccessful history of appropriate conservative therapy (non-surgical medical management). Non surgical medical management was implemented for 3 months or more to assess effectiveness. Conservative treatment as clinically appropriate for the patient? s current episode of care including, but not limited to, one or more of the following: anti-inflammatory medications, analgesics, flexibility and muscle strengthening exercises, supervised physical therapy, activities of daily living (1ADLs) diminished despite completing a plan of care, activity restrictions as is reasonable, assistive device use, weight reduction as appropriate, and therapeutic injections into the joint as appropriate. Risks and benefits of surgery were discussed with the patient and the patient understood. I discussed the alternatives and details of surgery and postoperative care with the patient. The patient understands the concepts of surgery and the postoperative conditions required for healing. The patient further understands that surgery can have unfavorable outcomes. In particular, we discussed the possible complications of nonhealing of the tissues and need for reoperation, nerve injury, bleeding or blood loss requiring transfusion, hematoma or complications of anticoagulation used to prevent blood clots, infection requiring further surgery or removal of implants, massive infection requiring amputation, or continued or worse pain. We also discussed worsening of chronic medical conditions and life-threatening complications including stroke, clot, heart attack, pulmonary embolism and related to the surgery or anesthesia, or other factors. The patient understands these risks and benefits of surgery and wishes to proceed, and has signed consent willfully. Due to the condition of the joint, it is my medical opinion that further conservative treatment will not provide relief of their pain, thus we are proceeding with surgery. VTE risk factors: History of VTE: No Active malignancy (excluding skin cancer): No Systolic heart failure (LVEF < 40%): No Bilateral TKA or ELKIN being performed: No Current use of hormonal therapy: No (Testosterone use excluded) Oral contraceptive pills Hormone replacement therapy Known thrombophilic disorder: No Antiphospholipid Syndrome Factor V Leiden Prothrombin Gene Mutation Protein C/S Deficiency Anti-Thrombin Deficiency Paroxysmal Nocturnal Hemoglobinuria (PNH) Myeloproliferative Disorder/MILTON-2 Mutation Polycythemia Vera Chronic Myelogenous Leukemia Essential Thrombocytosis Total risk factors: 0 Based on risk stratification above, will plan to use aspirin for DVT prophylaxis. Patients prescribed antithrombotic therapy for an indication other than post-operative VTE prophylaxis should be assessed on an individual basis for continuation of their current therapy. If using a direct oral anticoagulant (DOAC) as home regimen, either resume DOAC post-op, or consider temporary transition to Warfarin therapy in the post-operative period. Not available 09/17/2024 15:49:59 11/05/2024 11/05/2024 PRIMARY DIAGNOSIS: Osteoarthritis of the left hip. REASON FOR ADMISSION: The patient is being admitted for a left total hip arthroplasty via anterior approach with Dr. Arellano on 11/13/2024. HISTORY OF PRESENT ILLNESS: The patient is a 54-year-old female, presenting today with left-sided hip pain. Her pain has been going on for several years and has been getting progressively worse. Her pain level is 6/10 in intensity at rest, increasing to 10/10 in intensity with weightbearing activities. She reports significant activity limitations, which include difficulty walking any prolonged distances, pivoting and stairs. She has difficulty getting in and out of the car and chair and transitioning from sit to stand. The patient had a previous right total hip arthroplasty done with Dr. Arellano in 06/2022, which is doing very well. She has a fully recovered from her previous joint replacement and states that it is no longer painful. She does not ambulate with any assistive device at this time. She does ambulate with a limp on the left side. The patient states that she is now ready for left total hip arthroplasty with Dr. Arellano on 11/13/2024. PAST MEDICAL HISTORY: 1. Osteoarthritis of the left hip. 2. Obesity with BMI of 40.4. 3. History of COVID-19 infection with no sequela. PAST SURGICAL HISTORY: 1. Right total hip arthroplasty with Dr. Arellano in 2021. 2. Breast reduction over 10 years ago. 3. Bunionectomy at age 26. 4. Emergency cholecystectomy in 07/2022. CURRENT MEDICATION LIST: None. ALLERGIES: The patient has no known drug allergies. SOCIAL HISTORY: The patient is and lives at home with her . 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 She denies any use of tobacco products, alcohol use or illicit drug use. PHYSICIANS: Her primary care provider is Dr. Yun. REVIEW OF SYSTEMS: Negative with exception of the HPI. PHYSICAL EXAMINATION: VITAL SIGNS: Weight is 198 pounds. GENERAL: The patient is alert and oriented. Normal insight, affect and grooming. HEENT: Normocephalic. Conjunctivae are pink. Sclerae are anicteric. SKIN: Intact without rashes or lesions. Nails are without clubbing or cyanosis. Well-healed surgical incision noted over the right hip. NECK: Supple. Trachea is midline. No lymphadenopathy. CHEST: Lungs are clear to auscultation bilaterally. Breathing is unlabored. CARDIOVASCULAR: Heart has regular rate and rhythm with normal S1 and S2. No murmurs, rubs or gallops appreciated. No JVD. Carotid pulse without bruits. ABDOMEN: Soft and nontender with normal bowel sounds. No hepatosplenomegaly or masses noted. No bruits appreciated. EXTREMITIES: The patient has negative straight legs raise test bilaterally. Bilateral knees with full range of motion, no pain and no crepitus. Right hip has well-healed incision, full range of motion and no pain. Left hip has very limited and painful range of motion with pain referred to the groin. Motor sensation screening is intact. Calves are supple and nontender. Ankle motion is satisfactory. Pedal pulses are palpable bilaterally. Skin on her feet is intact. PREOPERATIVE DIAGNOSTIC DATA: EKG reads normal sinus rhythm at 90 beats per minute with prolonged QT. Orthopedic x-rays demonstrate end-stage osteoarthritis of the left hip. There is [id number] articulation, subchondral sclerosis and osteophyte formation. There is a well-positioned and well-fixed arthroplasty noted on the contralateral side. LABORATORY DATA: CBC, chemistry panel and coagulation studies are within normal limits. A1c is 5.2. ASSESSMENT AND PLAN: The patient has advanced osteoarthritis of the left hip and is now scheduled for a left total hip arthroplasty via anterior approach with Dr. Arellano on 11/13/2024. The patient was seen by the [facility], who stated that the patient is at low risk for perioperative cardiovascular and pulmonary complications. The patient will receive intravenous tranexamic acid. She will be on aspirin postoperatively for deep vein thrombosis prophylaxis. Discharge plans will be home the day of surgery. The patient is a good candidate to do so. The patient has been counseled regarding the risks and benefits of proposed surgery. All questions have been answered and she acknowledges understanding. The patient wished to proceed with the surgery. The patient will receive 1 week of in-home physical therapy postoperatively. Prescriptions for Celebrex were given to her at this office visit. The patient will require prescriptions for aspirin, pantoprazole, Colace and pain medications, filled at [facility] prior to discharge as well as Zofran. She did well with tramadol and oxycodone after previous surgery. CONTACTS: Her , Wesley, with cell phone #[phone]. [email or web address] Not available 11/05/2024 12:16:35 11/05/2024 11/05/2024 XR Hip Left Hip: Two views of the hip were obtained including AP pelvis and groin lateral views. Severe DJD present. Changes consistent with osteoarthritis including joint space narrowing, subchondral sclerosis, and osteophyte formation. Arthrosis primarily affects the [superior] compartment. [email or web address] Not available 11/26/2024 12:47:29 12/20/2024 12/20/2024 Imaging: Imaging ordered, independently reviewed and interpreted by Caio Arellano MD reveals the following findings: XR Hip Left hip: Two views of the hip were obtained including AP pelvis and groin lateral views. Status post hip surgery: Status post ELKIN with no evidence of complication, well fixed, well aligned, and located. There is good cheondoism of leg length and offset without loosening [...] angiogram to evaluate for possible pulmonary embolism. [email or web address] Not available 12/20/2024 16:29:45 Plan of Treatment Reminders Order Date Submit Date Provider Last Modified By Organization Details Last Modified Time Details Appointments POST OP 10 2024 03:20P M Caio Arellano MD Not available Not available Not available Lab None recorde d. Referral None recorde d. Procedures None recorde d. Surgeries None recorde d. Imaging XR, knee, 4 or more view - 201 l knee 4v 2024 025 ANANTH [facility], [address], [address], [place], [address], 12/20/2024 15:45:51 XR, hip + pelvis, unilate ral, 2 or 3 view - 201 lthr 2v p/o 2024 025 [facility], [address], [address], [place], [address], 12/20/2024 15:39:49 US, duplex, venous, lower extremi ty - left le pain and swellin g, r/o DVT. s/p ALTHR 2024 025 [place] [facility] [place], [address], [address], [place], [address], 12/20/2024 17:16:09 XR, hip + pelvis, unilate ral, 2 or 3 view - 209, 2 views of left hip. S/P left ELKIN by Dr. Brother puente [email or web address] [place] [address] Office, [address], [place], [address], 11/29/2024 13:11:35 XR, hip + pelvis, unilate ral, 2 or 3 view - ROOM 223 LEFT HIP 2V WITH MARKER AB 2024 025 [email or web address] [facility], [address], [place], [address], 11/20/2024 10:03:01 Medication Orders amoxici llin 500 mg capsule 2024 025 [place] [id number], [address] [place], [address], 12/20/2024 15:31:43 Patient TargetsNo targets recorded. Patient InstructionsNo instructions recorded. Reason for Referral None Reported. Results Created Date Observation Date Name Description Value Unit Range Abnormal Flag Note LastModifiedBy Organization Detail LastModifiedTime 11/13/1911/13/2024 XR, hip + pelvi s, unila teral , 2 or 3 view No observ ation record ed. [facility] [address], [place], [address], 11/18/2024 15:56:04 11/13/19 25 11/13/2024 XR, hip + pelvi s, unila teral , 2 or 3 view No observ ation record ed. ANANTH [facility] Office [address], [place], [address], 11/18/2024 15:55:54 11/26/19 25 11/26/2024 XR, hip + pelvi s, unila teral , 2 or 3 view [email or web address]:/ [email or web address] ?Encry pted=s hAaTro YD8dLq bEUv6g %2BXZw aYqtaq 0bqfl% 2Fg9IQ a4ajBk vP9nXo QUaueC m3YtLR FvZlgJ JJ8mAn HZtai3 6x5835 AC0Kqb H2HVae jKiQtr MwF INTERFACE [facility] [address], [place], [address], 11/26/2024 15:38:23 11/26/19 25 11/26/2024 XR, hip + pelvi s, unila teral , 2 or 3 view http:/ [email or web address] ?Encry pted=s hAaTro YD8dLq bEUv6g %2BXZw aYqtaq 0bqfl% 2Fg9IQ a4ajBk vP9nXo QUaueC m3YtLR FvZlgJ JJ8mAn HZtai3 3r0898 AC0Kqb H2HVae jKiQtr MwF INTERFACE [facility] Office [address], [place], [address], 11/26/2024 15:38:25 12/20/19 25 12/20/2024 XR, hip + pelvi s, unila teral , 2 or 3 view http:/ [email or web address] ?Encry pted=s hAaTro YD8dLq bEUv6g %2BXZw aYqtaq 0bqfl% 2Fg9IQ a4ajBk vP9nXo QUaueC m3YtLR FvZlgJ JJ8mAn HZtai3 3q4531 AC0Kqb X%2BAV KanKiQ trMwF INTERFACE [facility] [address], [place], [address], 12/20/2024 15:39:50 12/20/19 25 12/20/2024 XR, hip + pelvi s, unila teral , 2 or 3 view http:/ [email or web address] ?Encry pted=s hAaTro YD8dLq bEUv6g %2BXZw aYqtaq 0bqfl% 2Fg9IQ a4ajBk vP9nXo QUaueC m3YtLR FvZlgJ JJ8mAn HZtai3 2v2687 AC0Kqb X%2BAV KanKiQ trMwF INTERFACE [facility] [address], [place], [address], 12/20/2024 15:39:52 12/20/19 25 12/20/2024 XR, knee, 4 or more view http:/ [email or web address] ?Encry pted=s hAaTro YD8dLq bEUv6g %2BXZw aYqtaq 0bqfl% 2Fg9IQ a4ajBk vP9nXo QUaueC m3YtLR FvZlgJ JJ8mAn HZtai3 7i6482 AC0Kqb X%2BAV KekKiQ trMwF INTERFACE [facility] [address], [place], [address], 12/20/2024 15:45:51 12/20/19 25 12/20/2024 XR, knee, 4 or more view http:/ [email or web address] ?Encry pted=s hAaTro YD8dLq bEUv6g %2BXZw aYqtaq 0bqfl% 2Fg9IQ a4ajBk vP9nXo QUaueC m3YtLR FvZlgJ JJ8mAn HZtai3 4w9081 AC0Kqb X%2BAV KekKiQ trMwF INTERFACE [facility] [address], [place], [address], 12/20/2024 15:45:53 12/20/19 25 12/20/2024 US, duple x, venou s, lower extre mity No observ ation record ed. ANANTH [facility] [place] [address], [place], [address], 12/20/2024 17:16:10 Result Notes None recorded. Problems Name Problem SNOMED Code Status Onset Date Resolution Date Notes Provider Name and Address Organization Details Recorded Time Pain of left hip joint 8027544962306 00 Active 2023 PATRICA fofana [facility] 4 10:26:40 Osteoarthr itis of left hip joint 0733766145435 08 Active 2023 Caio Arellano MD [address], [place], [address] , [facility] 4 16:27:10 Pain of left knee joint 5794539324201 07 Active 2024 PATRICA fofana [facility] 5 15:31:00 Pain of left lower leg 1797688567403 01 Active 2024 PATRICA fofana [place] [facility] 5 15:35:28 History of repair of hip joint 806733979 Active 2024 Caio Arellano MD [address], [place], [address] , [facility] 5 16:29:08 Problem Notes None recorded. Procedures Surgical History Date Name Laterality Status Provider Name and Address Organization Details Recorded Time 4 JHip completed Aidee Quach PA-C [address], [place], [address], [facility] 07/16/2024 09:09:32 Hip Surgery completed Yaa Awan [place] - [facility] 07/16/2024 13:28:33 Imaging Results Imaging Date Name Status LastModified by Organiz ation Details LastModified Time 11/13/2024 XR, hip + pelvis, unilateral, 2 or 3 view completed ANANTH [facility] [address], [place], [address], 11/18/2024 15:56:04 11/13/2024 XR, hip + pelvis, unilateral, 2 or 3 view completed ANANTH [facility] [address], [place], [address], 11/18/2024 15:55:54 11/26/2024 XR, hip + pelvis, unilateral, 2 or 3 view completed INTERFACE [facility] [address], [place], [address], 11/26/2024 15:38:23 11/26/2024 XR, hip + pelvis, unilateral, 2 or 3 view completed INTERFACE [facility] [address], [place], [address], 11/26/2024 15:38:25 12/20/2024 XR, hip + pelvis, unilateral, 2 or 3 view completed INTERFACE [facility] [address], [place], [address], 12/20/2024 15:39:50 12/20/2024 XR, hip + pelvis, unilateral, 2 or 3 view completed INTERFACE [facility] [address], [place], [address], 12/20/2024 15:39:52 12/20/2024 XR, knee, 4 or more view completed INTERFACE [facility] [address], [place], [address], 12/20/2024 15:45:51 12/20/2024 XR, knee, 4 or more view completed INTERFACE [facility] [address], [place], [address], 12/20/2024 15:45:53 12/20/2024 US, duplex, venous, lower extremity active ANANTH [facility] [place] [address], [place], [address], 12/20/2024 17:16:10 Procedure Notes None recorded. Medical Equipment None Reported. Allergies Allergen ID Allergen Name Allergen Category Reaction Reaction Severity Criticality Documentation Date Start Date Code Code System Note Provider Name and Address Organization Details Recorded Time 211106 No known allergy (situatio n) Not available Not available Not available Not available 07/16/2024 65662 6003 SNOMED Yaa fofana [place] - [facility] 13:28:33 No known drug allergies Medications Name [...] Not Available Vitals Date Recorded Body height Provider Name an d Address Organization Details Last Updated DateTime 09/17/2024 152.4 cm Maida Gama [facility] 09/17/2024 15:09:31 Date Recorded Body height Body mass index (BMI) Body weight Provider Name and Address Organization Details Last Updated DateTime 11/05/2024 152.4 cm 38.7 kg/m2 13128.29 g JAYRO WHITE [facility] 11/05/2024 11:00:16 Date Recorded Body height Body mass index (BMI) Body weight Provider Name and Address Organization Details Last Updated DateTime 11/26/2024 152.4 cm 38.7 kg/m2 73446.29 g Sana Contreras [facility] 11/26/2024 15:20:26 Date Recorded Body height Body mass index (BMI) Body weight Provider Name and Address Organization Details Last Updated DateTime 12/20/2024 152.4 cm 38.7 kg/m2 29872.29 g PATRICA RUELAS [facility] 12/20/2024 15:25:37 Social History Question Answer [...] SNOMED-CT Code Diagnosis ICD10 Code Diagnosis Note [id number] BETY Rao [address] [place], [place] [address] 05/31/2024 09:50:40 06/24/2024 14:00:33 Pain of left hip joint 3925292426 08344 M25.552 Osteoarthr itis of left hip joint 9808497701 61805 M16.12 [id number] MD Gabi Lin [address] [place], [place] [address] 06/07/2024 13:43:54 06/28/2024 09:55:25 Pain of left hip joint 3727995306 30540 M25.552 Osteoarthr itis of left hip joint 5836449596 69288 M16.12 [id number] BETY Barraza [facility] [facility] [address] [place] [address] 07/16/2024 13:15:33 08/06/2024 12:54:09 Osteoarthritis of left hip joint 7139992001 11509 M16.12 After a long discussion with the patient which included the risk and benefits of the procedure. The patient is interested in proceeding with ultrasound guided {{Right Le ft*}} intra-cresencio cular hip injection. After consent was obtained we proceeded with injection. Risks of the procedure were discussed with patient including worsening osteoarthr itis, small risk to blood vessels and tendons and nerves.Aft er consent was obtained from the patient. Under normal sterile fashion using chlorhexid ine, under ultrasound guidance, neurovascu lar bundle was first identified and then 2 cc of 1% lidocaine 1 cc of 40 mg of Kenalog was injected intra-cresencio cularly into the patient's hip. Ultrasound documentat ion was saved into PACS. Patient tolerated procedure well. Postproced ure protocol was discussed with the patient. Patient will contact with any questions or worsening symptoms. Follow-up as discussed [id number] MD Gabi Lin [facility] [address] [place], [place] [address] 09/17/2024 14:50:28 10/07/2024 09:47:00 Osteoarthritis of left hip joint 6893103202 87897 M16.12 [id number] Marisajasmin CASSIDY Guerrero [facility] [place] [address] 11/05/2024 10:53:00 11/22/2024 04:03:39 [id number] MD [facility] Lin [facility] [address] [place] [address] 11/05/2024 11:13:42 11/22/2024 04:03:39 Osteoarthritis of left hip joint 7946164994 51369 M16.12 [id number] Aidee Quach PA-C [facility] [address] [place] [address] 11/26/2024 15:04:28 12/09/2024 11:22:34 History of total replacement of left hip joint 8931073266 096513 Z96.642 The patient will continue with physical therapy and advance as tolerated. Continue with an assistive device as needed to help with ambulation . Will continue DVT prophylaxi s as scheduled. Total hip precaution s were reviewed. Pain medication s refills as needed. Follow-up as scheduled, sooner if any problems arise. All questions and concerns were addressed and answered. [id number] MD [facility] - [facility] [address] [place] [address] 12/20/2024 15:17:07 12/20/2024 16:30:03 History of repair of hip joint 848571350 Z96.642 Pain of le ft knee joint 6283788972 73212 M25.562 Pain of le ft lower leg 8995331927 29734 M79.662 M79.89 Health Concerns Section Related Observation LastModified by Organization Detai ls LastModified Time None Recorded Concern Status LastModified by Organization Details LastModified Time None Recorded Advance Directives Directive None Recorded Payers Encounter Date Sequence Insurance Name Policy Number Policy Grullon Covered Member ID Grullon Member ID Guarantor Name 09/17/2024 1 [place] MERI MCCANN [id number] 3 Isabella Villa Treeger [id number] BF Isabella Villa Treeger 11/05/2024 1 [place] [id number] 3 Isabella Solano [id number] BF Isabella Villa Treeger 11/05/2024 1 [place] [id number] 3 Isabella Villa Treeger [id number] BF Isabella Villa Treeger 11/26/2024 1 [place] [id number] 3 Isabella Bordenger [id number] BF Isabella Villa Treeger 12/20/2024 1 [place] [id number] 3 Isabella Villa Treeger [id number] BF Isabella Villa Treeger Notes Date Note Type Note Provider Name and Address Organization Details Recorded Time 4 text/html History of present illness: Complaint: Left hip pain Pain: The pain is severe, it is worsened with activity and has gotten to point where it limits the patient's ability to ambulate moderate distances without needing to rest for pain relief. The patient is limited in their regular daily and social activities as a result of this pain Non-operative treatment: Patient has tried and failed anti-inflammatory pain medications, Tylenol, physical therapy, and injections. The injection she had in June was helpful for about 3 weeks Isabella is an extremely friendly and pleasant 54-year-old female who presents today for evaluation for her left hip. They have a known, longstanding history of left hip osteoarthritis and have undergone a lengthy course of conservative management with generalized failure of nonsurgical options. Their pain is severe and worsened with activity, it has gotten to the point where it is significantly interfering with their ability to perform activities of daily living as well as daily social tasks. They are interested in pursuing total hip arthroplasty for definitive relief of their pain from osteoarthritis Past family, medical, social history and review of systems has been reviewed and updated, and is located in the patient? s chart. Caio Arellano MD [address] [place] [address] [address], [place], [address], [facility] 09/17/2024 15:50:08 5 text/html I am seeing the patient under the general supervision of {{Dr. Roa* Dr. Adan Flores}} who was available but who did not see the patient. Date of surgery: {{ 11/13/23#}} HISTORY OF PRESENT ILLNESSPatient presents today {{2 weeks* 4 weeks}} status post {{Left* Right}} {{anterior* posterior di rect superior}} total hip arthroplasty by {{Adan* Bennie Glez}}. Overall they are doing quite well. Pain is tolerable on current regimen. Patient is taking {{aspirin* eliquis}} BID for DVT prophylaxis. They are using a {{rolling walker cane* no assistive device}} for ambulation assistance. No neurovascular changes. They have been compliant with total hip precautions as directed. Overall happy with results thus far. Primarily utilizing {{oxycodone tramadol dil audid tylenol* no pain medications}} for pain control. Diagnostic Imagin view radiographs were ordered, obtained, and reviewed by myself during today's visit at [facility], and demonstrate well maintained alignment of the prosthetic components. No fracture or dislocation. Well seated acetabular component. No evidence of stem subsidence. No interval changes Aidee Quach PA-C [address], [place], [address], [facility] 11/26/2024 15:50:04 5 text/html History of present illness:This patient follows [...] the patient? s chart. Caio Arellano MD [address], [place], [address], [facility] 12/20/2024 16:30:00 OBGyn Episode No OBEpisode recorded.
[2024-12-20] MEDS: iohexoL 350 MG/ML 100 ML INFUS..BTL 65 ML IV (21:36)
[2024-12-20 22:58] VITALS: BP 125/87; PULSE 72; RESP 16; TEMP 36.8; O2SAT 97
== END 2024-12-20 23:06 | disposition home or self-care (01) ==
PROVIDERS: Physician Assistant Medical; Emergency Provider Internal Medicine; PCP Internal Medicine
DX: R06.00 Dyspnea, unspecified (principal); R06.02 Shortness of breath; R00.0 Tachycardia, unspecified; Z87.891 Personal history of nicotine dependence; Z79.899 Other long term (current) drug therapy
CPT/HCPCS: 36415; 71275; 80053; 83735; 83880; 84484; 85025; 85379; 93005; 99284; 99285; Q9967

== ENCOUNTER → 2024-12-20 17:24 | Outpatient (BNV) | payer BC, SELFPAY | PROVIDERS: Emergency Provider Internal Medicine; PCP Internal Medicine; Visit Provider Internal Medicine | DX: R06.02 Shortness of breath (principal) | CPT/HCPCS: 93010 ==

== ENCOUNTER → 2024-12-20 21:15 | Outpatient (BNV) | payer BC, SELFPAY | PROVIDERS: Emergency Provider Internal Medicine; PCP Internal Medicine; Visit Provider Radiology Neuroradiology | DX: J98.11 Atelectasis (principal) | CPT/HCPCS: 71275 ==

== ENCOUNTER 2024-12-26 15:23 | Outpatient (AMB) | payer BC, SELFPAY ==
[2024-12-26 15:25] VITALS: BP 122/80; PULSE 123; O2SAT 98; BMI 39.2
--- NOTE | 2024-12-26 15:25 | A.OFFPC_ITS ---
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 Accompanied by: Self / Same As Patient Allergies contrast dye Allergy (Intermediate, Uncoded 12/26/24 15:54) Hives Tobacco use date assessed: 12/26/24 Dental Screening Dental Screen Date: 12/26/24 Did you have a dental visit in the last 12 months?: Yes Did you have a dental problem in the last 6 months where you did not have access to dental care?: No Was dental information given to patient?: Patient has dentist HPI Red rash, itchines HPI Details The patient is 54-year-old female with significant past medical history of morbid obesity, osteoarthritis, status post total right hip surgery The patient reports that there was a concern for DVT because she was having calf pain, so they did a Doppler and that was negative Reports that she was also having shortness of breath and tachycardia, so they did a CTA with contrast to rule out PE on 12/20/24 in the ER The patient reports that she was fine at first, but few days later she started developing a rash She has been using Benadryl without any relief. The patient reports that the itchiness is intense The patient has red,raised rashes widespread, over her back, chest, both arms and the patient said they are on her thighs as well The patient denies sob, chest pain, heart palpitation or dizziness The patient denies any mouth swelling. The patient was informed that if she starts to have any respiratory symptoms, she would need to go to the hospital. Prednisone taper ordered COUNTS INCLUDE 234 BEDS AT THE [facility] Medical History Vaginal lesion Osteoarthritis of right hip Encounter to establish care Right hip pain Obesity Surgical History Hx of cholecystectomy History of hip replacement H/O right knee surgery History of bilateral breast reduction surgery Family History Father Prostate cancer Heart disease Mother Skin cancer Social History Housing: House Alcohol intake: current Alcohol intake frequency: holidays/special occasions only Patient Tobacco Use Status: Former Tobacco user e-Cigarette/Vaping Use: Never Used Second Hand Smoke Exposure: Yes Advance Directives Date on File: 04/21/21 service: No Current occupational status: employed 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 1. Little interest or pleasure in doing things: not at all 2. Feeling down, depressed, or hopeless: not at all 3. Trouble falling or staying asleep, or sleeping too much: not at all 4. Feeling tired or having little energy: not at all 5. Poor appetite or overeating: not at all 6. Feeling bad about yourself - or that you are a failure or have let yourself or your family down: not at all 7. Trouble concentrating on things, such as reading the newspaper or watching television: not at all 8. Moving or speaking so slowly that other people could have noticed. Or the opposite - being so fidgety or restless that you have been moving around a lot more than usual: not at all 9. Thoughts that you would be better off or of hurting yourself in some way: not at all Total score: 0 Depression Screening Interpretation: Negative Depression Screening Done: Yes 75064 - PHQ-9 Billing: Yes Source: Developed by Drs. Kiel Merritt, Светлана Cooley, Babar Cox and colleagues, with an educational carrie from [employer]. Thrive Questionnaire Date Thrive assessed: 12/26/24 I am a: Patient What is your living situation today?: I have a steady place to live Within the past 12 months, did the food you bought not last and you didn't have the money to get more?: Never true Within the past 12 months, did you worry whether your food would run out before you got money to buy more?: Never true Do you have trouble paying for medicines?: No Do you have trouble getting transportation to medical appointments?: No Do you have trouble paying your heating and electricity bill?: No Do you have trouble taking care of your child, family member or friend?: No Do you have trouble with day-to-day activities such as bathing, preparing meals, shopping, managing finances, etc.?: No Are you currently unemployed and looking for a job?: No Are you interested in more education?: No THRIVE Score: 0 AUDIT C Alcohol Use Questionnaire (AUDIT-C) 1. How often do you have a drink containing alcohol?: Monthly or less 2. How many drinks containing alcohol do you have on a typical day when you are drinking?: 1 or 2 3. How often do you have six or more drinks on one occasion?: Never Total Score: 1 BRY-7 AMB Questionnaire BRY-7 Date BRY - 7 assessed: 12/26/24 Feeling nervous, anxious, or on edge: 0 = Not at all Not being able to stop or control worryin = Not at all Worrying too much about different things: 0 = Not at all Trouble relaxin = Not at all Being so restless that it is hard to sit still: 0 = Not at all Becoming easily annoyed or irritable: 0 = Not at all Feeling afraid as if something awful might happen: 0 = Not at all Total BRY-7 score (0-4 normal; 5-9 mild; 10-14 moderate; 15-21 severe): 0 Source: Developed by Drs. Kiel Merritt, Светлана Cooley, Babar Cox and colleagues, with an educational carrie from [employer]. BRY-7 Assessment Billing BRY-7 Assessment Tool: BRY-7 Assessment 32775 Review of Systems Const Details: Denies chills, Denies fatigue, Denies fever(s), Denies headache(s) and Denies weakness HEENT Denies change in vision, Denies dizziness, Denies headache(s), Denies hearing loss, Denies nasal congestion, Denies sinus pain, Denies sinus pressure and Denies sore throat Card Denies chest pain, Denies lightheadedness, Denies dyspnea and Denies other (palpitations) Resp Denies cough, Denies dyspnea and Denies wheezing GI Denies abdominal pain, Denies melena, Denies hematochezia, Denies change in bowel habits, Denies dyspepsia and Denies nausea Denies hematuria and Denies dysuria Musc Denies abnormal gait, Denies myalgias, +arthralgias (post right total hip repair), Denies numbness and Denies tingling Skin/Breast repoorts widespread rash, Denies unusual bruising and Denies wounds Neuro Denies abnormal gait, Denies dizziness, Denies headache(s), Denies memory loss, Denies numbness, Denies Sensory deficit (Neuro), Denies tingling and Denies weakness Psych Denies anxiety, Denies depression and Denies memory loss Endo Denies cold intolerance, Denies fatigue, Denies heat intolerance, Denies polydipsia and Denies polyuria Charli/Lymph Denies easy bleeding and Denies easy bruising Aller/Immune --Reports intense itching Physical exam (Primary Care) Vital Signs: Last Vital Signs Pulse 123 H 12/26/24 15:25 BP 122/80 12/26/24 15:25 Pulse Ox 98 12/26/24 15:25 Oxygen Delivery Method Room Air 12/26/24 15:25 BMI result Body Mass Index 39.2 Tobacco/Smoking Status: Tobacco use Status Tobacco use date assessed 12/26/24 12/26/24 15:32 Patient Tobacco Use Status Former Tobacco user 12/26/24 15:32 e-Cigarette/Vaping Use Never Used 12/26/24 15:32 PHQ-9: PHQ-9 Score PHQ-9: Total score 0 12/26/24 15:32 Depression Screening Interpretation: Negative Thrive Assessment: Date of Thrive Assessment Date Thrive assessed 12/26/24 12/26/24 15:32 Const Other: General: no acute distress, well developed, alert and awake Nutritional Appearance: well nourished Orientation/consciousness: patient oriented x3 HENMT Head: Yes normocephalic and Yes atraumatic Ears: hearing grossly normal bilaterally and TM's normal bilaterally General nose exam: Normal external nose present and Normal nares present Mouth: Normal oral and palatal mucosa present and moist mucous membranes Teeth and gingiva: dentition normal Throat: Yes oropharynx normal Eyes Pupils: Equal, round and reactive pupils present and Pupil accommodation reflex normal EOM: EOMs intact bilaterally Neck Neck: Yes normal visual inspection, Yes no lymphadenopathy and Yes trachea midline Thyroid: Thyroid normal Carotids: no bruits Lymphatic: no lymphadenopathy noted Chest Chest palpation & inspection: normal inspection of the chest Resp Effort & Inspection: normal respiratory effort Auscultation: clear to auscultation bilaterally Cardio Rate: tachycardia Rhythm: regular rhythm Heart sounds: S1 normal heart sound present, S2 normal heart sound present, no gallops, no murmurs and no rubs Bruits: no abdominal aortic bruits and no carotid bruits GI Palpation (GI): No Abdominal aortic bruit present, Soft to palpation, nontender, No hepatosplenomegaly present and No Rebound tenderness present Auscultation: normal bowel sounds General: Yes no CVA tenderness Skin General: warm and dry. Normal skin color. Normal skin turgor Rashes: wide spread erythema maculopapular rashes (upper back, chest, bilateral arms, and thighs) Trauma: no lacerations or abrasions Wounds: no wounds Nails: normal Neuro General: patient oriented x3, gait normal Cranial nerves: Yes Equal, round and reactive pupils present Cognition (Neuro): normal cognition Gait exam (Neuro): Normal gait present Extrem General: Yes normal to inspection, No edema and No calf tenderness Psych Appearance: grossly normal Affect: normal affect Attitude: cooperative Thought process: Normal thought process present Coding Level of Care Code Est Pt Level 3 (39825) Diagnoses Itching L29.9 Maculopapular rash R21 Allergic reaction to contrast material, initial encounter T50.8X5A Encounter type: initial encounter Additional Codes PHQ-9 - 28857 - PHQ-9 Billing: Yes ([id number]) BRY-7 Assessment Billing - BRY-7 Assessment Tool: BRY-7 Assessment 47918 ([id number]) Time Spent (min) 27 Assessment & Plan Assessment & Plan (1) Itching: Code(s): L29.9 - Pruritus, unspecified Category: Medical Plan: Patient had a CTA done with contrast-few days after the patient broke out with a itchy widespread ithcy, maculopapular rash The patient has been taking Benadryl without any relief. She denies shortness of breath, chest pain, heart palpitation She reports that the itchiness is severe, feeling like she wants to crawl out of her skin Prednisone taper was ordered and the patient was encouraged to go the ER, if she start developing any swelling of the mouth, throat or tongue, sob, or chest pain (2) Maculopapular rash: Code(s): R21 - Rash and other nonspecific skin eruption Category: Medical Plan: Patient had a CTA done with contrast-few days after the patient broke out with a itchy widespread ithcy, maculopapular rash The patient has been taking Benadryl without any relief. She denies shortness of breath, chest pain, heart palpitation She reports that the itchiness is severe, feeling like she wants to crawl out of her skin Prednisone taper was ordered and the patient was encouraged to go the ER, if she start developing any swelling of the mouth, throat or tongue, sob, or chest pain (3) Allergic reaction to contrast dye: Code(s): T50.8X5A - Adverse effect of diagnostic agents, initial encounter Category: Medical Qualifiers: Encounter type: initial encounter Qualified Code(s): T50.8X5A - Adverse effect of diagnostic agents, initial encounter Plan: Patient had a CTA done with contrast-few days after the patient broke out with a itchy widespread ithcy, maculopapular rash The patient has been taking Benadryl without any relief. She denies shortness of breath, chest pain, heart palpitation She reports that the itchiness is severe, feeling like she wants to crawl out of her skin Prednisone taper was ordered and the patient was encouraged to go the ER, if she start developing any swelling of the mouth, throat or tongue, sob, or chest pain Medications: New prednisone see taper instructions 4 tabs x 2 days, 3 tabs x2 days, 2 tabs x 2 days, 1 tab x2 days = 20 tabs over 8 days 10 mg PO DIRECTED 20 tabs 0RF L29.9 - Pruritus, unspecified, R21 - Rash and other nonspecific skin eruption
--- OUTSIDE RECORDS SUMMARY | 2024-12-26 18:43 | XMS_ITS | Data Portability ---
Author Organization [facility] Adonis Guadarrama [facility] Surgeons [facility], [facility] Address [address] [place] [address] Care Team Providers Care Critical Power Install Technician Name Role Phone GURVINDER, KARTIK Primary Care [...] to Warfarin therapy in the post-operative period. [email or web address] Not available 09/17/2024 15:49:59 11/05/2024 11/05/2024 PRIMARY [...] with her . 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 She denies any use of tobacco products, [...] osteoarthritis of the left hip. There is qyzw-mt-mvlm articulation, subchondral sclerosis and osteophyte formation. There [...] pantoprazole, Colace and pain medications, filled at [facility] prior to discharge as well as Zofran. She did well with tramadol and oxycodone after previous surgery. CONTACTS: Her , Wesley, with cell phone #[phone]. [email or web address] Not available 11/05/2024 12:16:35 11/05/2024 11/05/2024 XR Hip Left Hip: Two views of the hip were obtained including AP pelvis and groin lateral views. Severe DJD present. Changes consistent with osteoarthritis including joint space narrowing, subchondral sclerosis, and osteophyte formation. Arthrosis primarily affects the [superior] compartment. [email or web address] Not available 11/26/2024 12:47:29 12/20/2024 12/20/2024 Imaging: Imaging ordered, independently reviewed and interpreted by Caio Arellano MD reveals the following findings: XR Hip Left hip: Two views of the hip were obtained including AP pelvis and groin lateral views. Status post hip surgery: Status post ELKIN with no evidence of complication, well fixed, well aligned, and located. There is good buddhist of leg length and offset without loosening [...] angiogram to evaluate for possible pulmonary embolism. [email or web address] Not available 12/20/2024 16:29:45 Plan of Treatment Reminders Order Date Submit Date Provider Last Modified By Organization Details Last Modified Time Details Appointments None recorded. Lab None recorded. Referral None recorded. Procedures None recorded. Surgeries None recorded. Imaging XR, knee, 4 or more view - 201 l knee 4v 2024 025 [email or web address] [facility], [address], [place], [address], 5 11:51:06 XR, hip + pelvis, unilatera l, 2 or 3 view - 201 lthr 2v p/o 2024 025 [email or web address] [facility], [address], [address], [place], [address], 5 11:51:06 US, duplex, venous, lower extremity - left le pain and swelling, r/o DVT. s/p ALTHR 2024 025 [email or web address] [facility] [place], [address], [place], [address], 5 11:51:06 XR, hip + pelvis, unilatera l, 2 or 3 view - 209, 2 views of left hip. S/P left ELKIN by Dr. Arellano 2024 025 jared [facility], [address], [address], [place], [address], 5 13:11:35 XR, hip + pelvis, unilatera l, 2 or 3 view - ROOM 223 LEFT HIP 2V WITH MARKER AB 2024 025 [email or web address] [facility], [address], [address], [place], [address], 5 10:03:01 Medication Orders amoxicill in 500 mg capsule 2024 025 [id number], [address] [facility] , [place], [address], 5 11:51:06 Patient TargetsNo targets recorded. Patient InstructionsNo instructions recorded. Reason for Referral None Reported. Results Created Date Observation Date Name Description Value Unit Range Abnormal Flag Note LastModifiedBy Organization Detail LastModifiedTime 11/13/19 25 11/13/2024 XR, hip + pelvi s, unila teral , 2 or 3 view No observ ation record ed. ANANTH [facility] [address], [place], [address], 11/18/2024 15:56:04 11/13/19 25 11/13/2024 XR, hip + pelvi s, unila teral , 2 or 3 view No observ ation record ed. ANANTH [facility] [address] [facility] [address], [place], [address], 11/18/2024 15:55:54 11/26/19 25 11/26/2024 XR, hip + pelvi s, unila teral , 2 or 3 view [email or web address]:/ [email or web address] ?Encry pted=s hAaTro YD8dLq bEUv6g %2BXZw aYqtaq 0bqfl% 2Fg9IQ a4ajBk vP9nXo QUaueC m3YtLR FvZlgJ JJ8mAn HZtai3 9l4817 AC0Kqb H2HVae jKiQtr MwF INTERFACE [facility] [address] [facility] [address], [place], [address], 11/26/2024 15:38:23 11/26/19 25 11/26/2024 XR, hip + pelvi s, unila teral , 2 or 3 view [email or web address]:/ [email or web address] ?Encry pted=s hAaTro YD8dLq bEUv6g %2BXZw aYqtaq 0bqfl% 2Fg9IQ a4ajBk vP9nXo QUaueC m3YtLR FvZlgJ JJ8mAn HZtai3 8b3472 AC0Kqb H2HVae jKiQtr MwF INTERFACE [facility] [address] [facility] [address], [place], [address], 11/26/2024 15:38:25 12/20/19 25 12/20/2024 XR, hip + pelvi s, unila teral , 2 or 3 view http:/ [email or web address] ?Encry pted=s hAaTro YD8dLq bEUv6g %2BXZw aYqtaq 0bqfl% 2Fg9IQ a4ajBk vP9nXo QUaueC m3YtLR FvZlgJ JJ8mAn HZtai3 9c8135 AC0Kqb X%2BAV KanKiQ trMwF INTERFACE [facility] [address], [place], [address], 12/20/2024 15:39:50 12/20/19 25 12/20/2024 XR, hip + pelvi s, unila teral , 2 or 3 view [email or web address]:/ [email or web address] ?Encry pted=s hAaTro YD8dLq bEUv6g %2BXZw aYqtaq 0bqfl% 2Fg9IQ a4ajBk vP9nXo QUaueC m3YtLR FvZlgJ J8Palmyra HZtai3 9g5098 AC0Kqb X%2BAV KanKiQ trMwF INTERFACE [facility] [address], [place], [address], 12/20/2024 15:39:52 12/20/19 25 12/20/2024 XR, knee, 4 or more view [email or web address]:/ [email or web address] ?Encry pted=s hAaTro YD8dLq bEUv6g %2BXZw aYqtaq 0bqfl% 2Fg9IQ a4ajBk vP9nXo QUaueC m3YtLR FvZlgJ JJ8Palmyra HZtai3 1f6309 AC0Kqb X%2BAV KekKiQ trMwF INTERFACE [facility] [address], [place], [address], 12/20/2024 15:45:51 12/20/19 25 12/20/2024 XR, knee, 4 or more view [email or web address]:/ [email or web address] ?Encry pted=s hAaTro YD8dLq bEUv6g %2BXZw aYqtaq 0bqfl% 2Fg9IQ a4ajBk vP9nXo QUaueC m3YtLR FvZlgJ JJ8mAn HZtai3 6a3101 AC0Kqb X%2BAV KekKiQ trMwF INTERFACE [facility] [address], [place], [address], 12/20/2024 15:45:53 12/20/1912/20/2024 US, samirle x, venou s, lower extre mity No observ ation record ed. [email or web address] [place] [address], [place], [address], 12/24/2024 14:17:52 Result Notes None recorded. Problems Name Problem SNOMED Code Status Onset Date Resolution Date Notes Provider Name and Address Organization Details Recorded Time Pain of left hip joint 4550204035072 00 Active 2023 PATRICA fofana [place] [facility] 4 10:26:40 Osteoarthr itis of left hip joint 1161145376981 08 Active 2023 Caio Arellano MD [address], [place], [address] , [facility] 4 16:27:10 Pain of left knee joint 2334841285742 07 Active 2024 PATRICA fofana [place] [facility] 5 15:31:00 Pain of left lower leg 1625528825565 01 Active 2024 PARTICA fofana [place] [facility] 5 15:35:28 History of repair of hip joint 485477703 Active 2024 Caio Arellano MD [address], [place], [address] , [facility] 5 16:29:08 Problem Notes None recorded. Procedures Surgical History Date Name Laterality Status Provider Name and Address Organization Details Recorded Time 4 JZHip completed Aidee Quach PA-C [address], [place], [address], [facility] 07/16/2024 09:09:32 09/28/202 2 Hip Surgery completed Yaa Awan [place] - [facility] 07/16/2024 13:28:33 Imaging Results Imaging Date Name Status LastModified by Organiz atformerly [facility] Details LastModified Time 11/13/2024 XR, hip + pelvis, unilateral, 2 or 3 view completed ANANTH [facility] [address], [place], [address], 11/18/2024 15:56:04 11/13/2024 XR, hip + pelvis, unilateral, 2 or 3 view completed ANANTH [facility] [address], [place], [address], 11/18/2024 15:55:54 11/26/2024 XR, hip + pelvis, unilateral, 2 or 3 view completed INTERFACE [facility] [address], [place], [address], 11/26/2024 15:38:23 11/26/2024 XR, hip + pelvis, unilateral, 2 or 3 view completed INTERFACE [facility] [address], [place], [address], 11/26/2024 15:38:25 12/20/2024 XR, hip + pelvis, unilateral, 2 or 3 view completed INTERFACE [facility] [address], [place], [address], 12/20/2024 15:39:50 12/20/2024 XR, hip + pelvis, unilateral, 2 or 3 view completed INTERFACE [facility] [address], [place], [address], 12/20/2024 15:39:52 12/20/2024 XR, knee, 4 or more view completed INTERFACE [facility] [address], [place], [address], 12/20/2024 15:45:51 12/20/2024 XR, knee, 4 or more view completed INTERFACE [facility] [address], [place], [address], 12/20/2024 15:45:53 12/20/2024 US, duplex, venous, lower extremity completed [email or web address] [facility] [place] [address], [place], [address], 12/24/2024 14:17:52 Procedure Notes None recorded. Medical Equipment None Reported. Allergies Allergen ID Allergen Name Allergen Category Reaction Reaction Severity Criticality Documentation Date Start Date Code Code System Note Provider Name and Address Organization Details Recorded Time 393663 No known allergy (situatio n) Not available Not available Not available Not available 07/16/2024 30661 6003 SNOMED Yaa fofana [place] - [facility] 13:28:33 No known drug [...] TIMES A DAY NEEDED FOR CONSTIPAT ION 01/28 /2025 completed Not Available Not Available Not Available oxycodone 5 mg tablet TAKE 1 TO 2 TABLETS BY MOUTH EVERY 4 HOURS NEEDED FOR SEVERE PAIN 11/26 completed Not Available Not Available Not Available Vitals Date Recorded Body height Provider Name an d Address Organization Details Last Updated DateTime 09/17/2024 152.4 cm Maida Gama [facility] 09/17/2024 15:09:31 Date Recorded Body height Body mass index (BMI) Body weight Provider Name and Address Organization Details Last Updated DateTime 11/05/2024 152.4 cm 38.7 kg/m2 50276.29 g JAYRO WHITE [facility] 11/05/2024 11:00:16 Date Recorded Body height Body mass index (BMI) Body weight Provider Name and Address Organization Details Last Updated DateTime 11/26/2024 152.4 cm 38.7 kg/m2 46252.29 g Sana Contreras [facility] 11/26/2024 15:20:26 Date Recorded Body height Body mass index (BMI) Body weight Provider Name and Address Organization Details Last Updated DateTime 12/20/2024 152.4 cm 38.7 kg/m2 31258.29 g PATRICA RUELAS [facility] 12/20/2024 15:25:37 Social History Question Answer Notes [...] SNOMED-CT Code Diagnosis ICD10 Code Diagnosis Note [id number] BETY Rao 2nd floor [address] [place], [place] [address] 05/31/2024 09:50:40 06/24/2024 14:00:33 Pain of left hip joint 6941586522 11457 M25.552 Osteoarthr itis of left hip joint 2680494470 63992 M16.12 [id number] MD Gabi Lin 2nd floor [address] [place], [place] [address] 06/07/2024 13:43:54 06/28/2024 09:55:25 Pain of left hip joint 2651318090 03945 M25.552 Osteoarthr itis of left hip joint 1288899916 75901 M16.12 [id number] BETY Barraza 2nd floor [address] [place], [place] [address] 07/16/2024 13:15:33 08/06/2024 12:54:09 Osteoarthritis of left hip joint 8439504961 89817 M16.12 After a long discussion with the [...] questions or worsening symptoms. Follow-up as discussed [id number] MD Gabi Lin 2nd [facility] [address] [place], [place] [address] 09/17/2024 14:50:28 10/07/2024 09:47:00 Osteoarthritis of left hip joint 2686954117 12411 M16.12 [id number] CASSIDY [facility] 2nd floor [address] [place] [address] 11/05/2024 10:53:00 11/22/2024 04:03:39 [id number] MD KRUPA Lin Gabi 2nd floor [address] [place] [address] 11/05/2024 11:13:42 11/22/2024 04:03:39 Osteoarthritis of left hip joint 1359133004 45127 M16.12 [id number] Aidee Quach PA-C [facility] [address] [place] [address] 11/26/2024 15:04:28 12/09/2024 11:22:34 History of total replacement of left hip joint 5692295750 220524 Z96.642 The patient will continue with physical therapy and advance as tolerated. Continue with an assistive device as needed to help with ambulation . Will continue DVT prophylaxi s as scheduled. Total hip precaution s were reviewed. Pain medication s refills as needed. Follow-up as scheduled, sooner if any problems arise. All questions and concerns were addressed and answered. [id number] MD KRUPA Lin [facility] 2nd [facility] [address] [place] [address] 12/20/2024 15:17:07 12/20/2024 16:30:03 History of repair of hip joint 379897922 Z96.642 Pain of le ft knee joint 2894522587 02916 M25.562 Pain of le ft lower leg 0332130107 39569 M79.662 M79.89 Health Concerns Section Related Observation LastModified by Organization Detai ls LastModified Time None Recorded Concern Status LastModified by Organization Details LastModified Time None Recorded Advance Directives Directive None Recorded Payers Encounter Date Sequence Insurance Name Policy Number Policy Grullon Covered Member ID Grullon Member ID Guarantor Name 09/17/2024 1 [place] MERI MCCANN [id number] 3 Isabella A Treeger [id number] BF Isabella Villa Treeger 11/05/2024 1 [place] MERI MCCANN [id number] 3 Isabella Solano [id number] BF Isabella Solano 11/05/2024 1 [place]I LU[place] [id number] 3 Isabella Solano [id number] BF Isabella Solano 11/26/2024 1 [place]: [place]I [place] [id number] 3 Isabella Solano [id number] BF Isabella Solano 12/20/2024 1 [place]: [place]I LUBS [id number] 3 Isabella Solano [id number] BF Isabella Solano Notes Date Note Type Note Provider Name [...] the patient? s chart. Caio Arellano MD [address] [place] [address] [address], [place], [address], [facility] - [facility] 09/17/2024 15:50:08 5 text/html [...] myself during today's visit at [facility], and demonstrate well maintained alignment of the prosthetic components. No fracture or dislocation. Well seated acetabular component. No evidence of stem subsidence. No interval changes Aidee Quach PA-C [email or web address], [place], [address], [facility] 11/26/2024 15:50:04 5 text/html History of present [...] patient? s chart. Caio Arellano MD [email or web address], [place], [address], [facility] 12/20/2024 16:30:00 OBGyn Episode No OBEpisode recorded.
--- OUTSIDE RECORDS SUMMARY | 2024-12-26 18:43 | XMS_ITS | Continuity of Care Document ---
Author Organization [facility], K[facility] 2nd floor Address [address] [place] [address] Care Team Providers Care Marketing Project Lead Name Role Phone GURVINDER, KARTIK Primary Care Provider Assessment No assessment recorded. Plan of Treatment Reminders Order Date Submit Date Provider Last Modified By Organization Details Last Modified Time Details Appointments None recorded. Lab None recorded. Referral None recorded. Procedures None recorded. Surgeries None recorded. Imaging XR, hip + pelvis, unilateral , 2 or 3 view - 209, 2 views of left hip. S/P left ELKIN by Dr. Arellano 2024 025 [email or web address] [facility], [address], [place], [address], 13:11:35 Medication Orders None recorded. Patient TargetsNo targets recorded. Patient InstructionsNo instructions recorded. Reason for Referral None Reported. Results Created Date Observation Date Name Description Value Unit Range Abnormal Flag Note LastModifiedBy Organization Detail LastModifiedTime 11/13/1911/13/2024 XR, hip + pelvi s, unila teral , 2 or 3 view No observ ation record ed. ANANTH [facility] [address], [place], [address], 11/18/2024 15:56:04 11/13/1911/13/2024 XR, hip + pelvi s, unila teral , 2 or 3 view No observ ation record ed. ANANTH [facility] [address], [place], [address], 11/18/2024 15:55:54 11/26/19 25 11/26/2024 XR, hip + pelvi s, unila teral , 2 or 3 view http:/ [email or web address] ?Encry pted=s hAaTro YD8dLq bEUv6g %2BXZw aYqtaq 0bqfl% 2Fg9IQ a4ajBk vP9nXo QUaueC m3YtLR FvZlgJ JJ8mAn HZtai3 9j2013 AC0Kqb H2HVae jKiQtr MwF INTERFACE [facility] [address], [place], [address], 11/26/2024 15:38:23 11/26/19 25 11/26/2024 XR, hip + pelvi s, unila teral , 2 or 3 view http:/ [email or web address] ?Encry pted=s hAaTro YD8dLq bEUv6g %2BXZw aYqtaq 0bqfl% 2Fg9IQ a4ajBk vP9nXo QUaueC m3YtLR FvZlgJ JJ8mAn HZtai3 8v4550 AC0Kqb H2HVae jKiQtr MwF INTERFACE [facility] [address], [place], [address], 11/26/2024 15:38:25 12/20/19 25 12/20/2024 XR, hip + pelvi s, unila teral , 2 or 3 view http:/ [email or web address] ?Encry pted=s hAaTro YD8dLq bEUv6g %2BXZw aYqtaq 0bqfl% 2Fg9IQ a4ajBk vP9nXo QUaueC m3YtLR FvZlgJ JJ8mAn HZtai3 3h3715 AC0Kqb X%2BAV KanKiQ trMwF INTERFACE [facility] [address], [place], [address], 12/20/2024 15:39:50 12/20/19 25 12/20/2024 XR, hip + pelvi s, unila teral , 2 or 3 view http:/ [email or web address] ?Encry pted=s hAaTro YD8dLq bEUv6g %2BXZw aYqtaq 0bqfl% 2Fg9IQ a4ajBk vP9nXo QUaueC m3YtLR FvZlgJ JJ8mAn HZtai3 3t0468 AC0Kqb X%2BAV KanKiQ trMwF INTERFACE [facility] [address], [place], [address], 12/20/2024 15:39:52 12/20/19 25 12/20/2024 XR, knee, 4 or more view [email or web address] ?Encry pted=s hAaTro YD8dLq bEUv6g %2BXZw aYqtaq 0bqfl% 2Fg9IQ a4ajBk vP9nXo QUaueC m3YtLR FvZlJ JJ8mAn HZtai3 0r8271 AC0Kqb X%2BAV KekKiQ trMwF INTERFACE [facility] [address] [facility] [address], [place], [address], 12/20/2024 15:45:51 12/20/19 25 12/20/2024 XR, knee, 4 or more view http:/ [email or web address] ?Encry pted=s hAaTro YD8dLq bEUv6g %2BXZw aYqtaq 0bqfl% 2Fg9IQ a4ajBk vP9nXo QUaueC m3YtLR FvZlgJ JJ8mAn HZtai3 4l4504 AC0Kqb X%2BAV KekKiQ trMwF INTERFACE [facility] [address], [place], [address], 12/20/2024 15:45:53 12/20/19 25 12/20/2024 US, samirle x, venou s, lower extre mity No observ ation record ed. [facility] [place] [address] [facility] [address], [place], [address], 12/24/2024 14:17:52 Result Notes None recorded. Problems Name Problem SNOMED Code Status Onset Date Resolution Date Notes Provider Name and Address Organization Details Recorded Time Pain of left hip joint 2170844087371 00 Active 2023 PATRICA fofana [facility] 4 10:26:40 Osteoarthr itis of left hip joint 9559455156881 08 Active 2023 Caio Arellano MD [address], [place], [address] , [facility] 4 16:27:10 Pain of left knee joint 0874973672069 07 Active 2024 PATRICA fofana [facility] 5 15:31:00 Pain of left lower leg 0205235306110 01 Active 2024 PATRICA fofana [facility] 5 15:35:28 History of repair of hip joint 728628072 Active 2024 Caio Arellano MD [address], [place], [address] , [facility] 5 16:29:08 Problem Notes None recorded. Procedures Surgical History Date Name Laterality Status Provider Name and Address Organization Details Recorded Time 4 JZHip completed Aidee Quach PA-C [address], [place], [address], [facility] 07/16/2024 09:09:32 2 Hip Surgery completed Yaa Awan [facility] 07/16/2024 13:28:33 Imaging Results None recorded. Procedure Notes None recorded. Medical Equipment None Reported. Allergies Allergen ID Allergen Name Allergen Category Reaction Reaction Severity Criticality Documentation Date Start Date Code Code System Note Provider Name and Address Organization Details Recorded Time 12600306 No known allergy (situatio n) Not available Not available Not available Not available 07/16/2024 42845 6003 SNOMED Yaa Awan [facility] [place] [facility] [place] [facility] 13:28:33 No known drug allergies Medications Name [...] Updated DateTime 11/26/2024 152.4 cm 38.7 kg/m2 37887.29 g Sana Porternanda [place] [facility] 11/26/2024 15:20:26 Social History Question Answer Notes LastModified by [...] SNOMED-CT Code Diagnosis ICD10 Code Diagnosis Note [id number] CASSIDY Chave[facility] - [facility] 2[address] floor [address] [place] [address] 11/05/2024 10:53:00 11/22/2024 04:03:39 [id number] MD KRUPA Lin - B[facility] 2[address] floor [address] [place] [address] 11/05/2024 11:13:42 11/22/2024 04:03:39 Osteoarthritis of left hip joint 5496715361 74710 M16.12 [id number] Aidee Quach PA-C [facility] - [facility] [address] [place] [address] 11/26/2024 15:04:28 12/09/2024 11:22:34 History of total replacement of left hip joint 7182918852 411706 Z96.642 The patient will continue with physical therapy and advance as tolerated. Continue with an assistive device as needed to help with ambulation . Will continue DVT prophylaxi s as scheduled. Total hip precaution s were reviewed. Pain medication s refills as needed. Follow-up as scheduled, sooner if any problems arise. All questions and concerns were addressed and answered. Health Concerns Section Related Observation LastModified by Organization Detai ls LastModified Time None Recorded Concern Status LastModified by Organization Details LastModified Time None Recorded Payers Encounter Date Sequence Insurance Name Policy Number Policy Grullon Covered Member ID Grullon Member ID Guarantor Name 11/26/2024 1 [place]: MERI BCBS [id number] 3 Isabella Solano [id number] BF Isabella Solano Notes Date Note Type Note Provider Name and Address Organization Details Recorded Time 11/26/2024 text/html I am seeing the patient under the general supervision of {{Dr. Roa* Dr. Adan Flores}} who was available but who did not see the patient. Date of surgery: {{ 11/13/23#}} HISTORY OF PRESENT ILLNESSPatient presents today {{2 weeks* 4 weeks}} status post {{Left* Right}} {{anterior* posterio r direct superior}} total hip arthroplasty by {{Adan* Bennie [...] results thus far. Primarily utilizing {{oxycodone tramadol dilaudid tylenol* n o pain medications}} for pain control. Diagnostic Imagin view radiographs were ordered, obtained, and reviewed by myself during today's visit at [facility], and demonstrate well maintained alignment of the prosthetic components. No fracture or dislocation. Well seated acetabular component. No evidence of stem subsidence. No interval changes Aidee Quach PA-C [address], [place], [address], [facility] [place] [facility] 11/26/2024 15:50:04 OBGyn Episode No OBEpisode recorded.
--- OUTSIDE RECORDS SUMMARY | 2024-12-26 18:43 | XMS_ITS | Continuity of Care Document ---
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 There is good adventism of leg length and offset without loosening [...] angiogram to evaluate for possible pulmonary embolism. [email or web address] Not available 12/20/2024 16:29:45 Plan of Treatment Reminders Order Date Submit Date Provider Last Modified By Organization Details Last Modified Time Details Appointments None recorded. Lab None recorded. Referral None recorded. Procedures None recorded. Surgeries None recorded. Imaging XR, knee, 4 or more view - 201 l knee 4v [email or web address] [facility], [address], [place], [address], 5 11:51:06 XR, hip + pelvis, unilateral, 2 or 3 view - 201 lthr 2v p/o [address] [facility], [address], [place], [address], 5 11:51:06 US, duplex, venous, lower extremity - left le pain and swelling, r/o DVT. s/p ALTHR 2024 025 [facility], [address], [place], [address], 5 11:51:06 Medication Orders amoxicillin 500 mg capsule 2024 025 [facility] 15 [id number], [address] [place], [address], 5 11:51:06 Patient TargetsNo targets recorded. Patient [...] a4ajBk vP9nXo QUaueC m3YtLR FvZlgJ JJ8mAn HZtai3 3h4474 AC0Kqb H2HVae jKiQtr MwF INTERFACE [facility] [address], [place], [address], 11/26/2024 15:38:23 11/26/19 25 11/26/2024 XR, hip + pelvi s, unila teral , 2 or 3 view [email or web address] ?Encry pted=s hAaTro YD8dLq bEUv6g %2BXZw aYqtaq 0bqfl% 2Fg9IQ a4ajBk vP9nXo QUaueC m3YtLR FvZlgJ JJ8mAn HZtai3 0h4297 AC0Kqb H2HVae jKiQtr MwF INTERFACE [facility] [address], [place], [address], 11/26/2024 15:38:25 12/20/19 25 12/20/2024 XR, hip + pelvi s, unila teral , 2 or 3 view [email or web address] ?Encry pted=s hAaTro YD8dLq bEUv6g %2BXZw aYqtaq 0bqfl% 2Fg9IQ a4ajBk vP9nXo QUaueC m3YtLR FvZl JJ8mAn HZtai3 2o4916 AC0Kqb X%2BAV KanKiQ trMwF INTERFACE [facility] [address], [place], [address], 12/20/2024 15:39:50 12/20/19 25 12/20/2024 XR, hip + pelvi s, unila teral , 2 or 3 view [email or web address]:/ [email or web address] ?Encry pted=s hAaTro YD8dLq bEUv6g %2BXZw aYqtaq 0bqfl% 2Fg9IQ a4ajBk vP9nXo QUaueC m3YtLR FvZlgJ JJ8mAn HZtai3 9c4915 AC0Kqb X%2BAV KanKiQ trMwF INTERFACE [facility] [address], [place], [address], 12/20/2024 15:39:52 12/20/19 25 12/20/2024 XR, knee, 4 or more view [email or web address]:/ [email or web address] ?Encry pted=s hAaTro YD8dLq bEUv6g %2BXZw aYqtaq 0bqfl% 2Fg9IQ a4ajBk vP9nXo QUaueC m3YtLR FvZlgJ JJ8mAn HZtai3 3x3248 AC0Kqb X%2BAV KekKiQ trMwF INTERFACE [facility] [address], [place], [address], 12/20/2024 15:45:51 12/20/19 25 12/20/2024 XR, knee, 4 or more view [email or web address]:/ [email or web address] ?Encry pted=s hAaTro YD8dLq bEUv6g %2BXZw aYqtaq 0bqfl% 2Fg9IQ a4ajBk vP9nXo QUaueC m3YtLR FvZlgJ JJ8mAn HZtai3 7k3852 AC0Kqb X%2BAV KekKiQ trMwF INTERFACE [facility] [address] [facility] [address], [place], [address], 12/20/2024 15:45:53 12/20/19 25 12/20/2024 US, duple x, venou s, lower extre mity No observ ation record ed. [email or web address] [facility] [address] [facility] [address], [place], [address], 12/24/2024 14:17:52 Result Notes None recorded. Problems Name Problem SNOMED Code Status Onset Date Resolution Date Notes Provider Name and Address Organization Details Recorded Time Pain of left hip joint [id number] 00 Active 2023 PATRICA fofana [place] - [facility] 10:26:40 Osteoarthr itis of left hip joint 8500342514018 08 Active 2023 Caio Arellano MD [address], [place], [address] , [facility] 4 16:27:10 Pain of left knee joint 5161196710629 07 [facility] 5 15:31:00 Pain of left lower leg 6538829492973 01 Active 2024 PATRICA fofana, [facility] 5 15:35:28 History of repair of hip joint 284890702 Active 2024 Caio Arellano MD [address], [place], [address] , [facility] 5 16:29:08 Problem Notes None recorded. Procedures Surgical History Date Name Laterality Status Provider Name and Address Organization Details Recorded Time 4 [facility] completed Aidee Quach PA-C [address], [place], [address], [facility] 07/16/2024 09:09:32 2 Hip Surgery completed Yaa Awan [facility] 07/16/2024 13:28:33 Imaging Results None recorded. Procedure Notes None recorded. Medical Equipment None Reported. Allergies Allergen ID Allergen Name Allergen Category Reaction Reaction Severity Criticality Documentation Date Start Date Code Code System Note Provider Name and Address Organization Details Recorded Time [id number] No known allergy (situatio n) Not available Not available Not available Not available 07/16/[phone] [facility]ED [facility] 4 13:28:33 No known drug allergies [...] Updated DateTime 12/20/2024 152.4 cm 38.7 kg/m2 86574.29 g PATRICA RUELAS [place] - [facility] 12/20/2024 15:25:37 Social History Question Answer [...] SNOMED-CT Code Diagnosis ICD10 Code Diagnosis Note [id number] BETY Barraza [facility] [address] [place] [address] 11/26/2024 15:04:28 12/09/2024 11:22:34 History of total replacement of left hip joint [id number] 218788 Z96.642 The patient will continue with physical therapy and advance as tolerated. Continue with an assistive device as needed to help with ambulation . Will continue DVT prophylaxi s as scheduled. Total hip precaution s were reviewed. Pain medication s refills as needed. Follow-up as scheduled, sooner if any problems arise. All questions and concerns were addressed and answered. [id number] MD KRUPA Lin [facility] 2[address] [place] [address] 12/20/2024 15:17:07 12/20/2024 16:30:03 History of repair of hip joint 055816597 Z96.642 Pain of le ft knee joint 0699214710 37509 M25.562 Pain of le ft lower leg 8866500900 47232 M79.662 M79.89 Health Concerns Section Related Observation LastModified by Organization Detai ls LastModified Time None Recorded Concern Status LastModified by Organization Details LastModified Time None Recorded Payers Encounter Date Sequence Insurance Name Policy Number Policy Gr[place]on Covered Member ID Grullon Member ID Guarantor Name 12/20/2024 1 [place] BC[place] [id number] 3 Isabella Villa Treeger [id number] BF Isabella Villa Treeger Notes Date Note Type Note Provider Name and Address Organization Details Recorded Time 5 text/html History of present illness:This patient [...] patient? s chart. Caio Arellano MD [address], [place], [address], [facility] - [facility] 12/20/2024 16:30:00 OBGyn Episode No OBEpisode recorded.
== END 2024-12-26 15:57 | disposition home or self-care (01) ==
PROVIDERS: PCP Internal Medicine
DX: L29.9 Pruritus, unspecified (principal); R21 Rash and other nonspecific skin eruption; T50.8X5A Adverse effect of diagnostic agents, initial encounter

== ENCOUNTER → 2024-12-26 15:23 | Outpatient (BNVA) | payer BC, SELFPAY | PROVIDERS: PCP Internal Medicine | DX: L29.9 Pruritus, unspecified (principal); R21 Rash and other nonspecific skin eruption; T50.8X5A Adverse effect of diagnostic agents, initial encounter | CPT/HCPCS: 96127 ==

== ENCOUNTER 2025-04-17 15:49 | Outpatient (AMB) | payer BC, SELFPAY ==
--- NOTE | 2025-04-17 15:54 | MHC.PC.OV ---
Vital Signs 04/17/25 15:55 Height 4 ft 11 in Weight 197 lb 4 oz BMI 39.8 BP 124/72 Blood Pressure Location Lt brachial Position Sitting Pulse 89 Pulse Source Pulse Oximeter Temp 97.3 F Temp Source Temporal Artery Scan Pulse Oximetry (%) 96 Oxygen Delivery Method Room Air Intake Visit Reasons: annual exam - see comments Intake Note: Patient is here today for a physical. [employer] Paralegal Required: No Sap Architect: Not Required per policy Accompanied by: Self / Same As Patient Allergies contrast dye Allergy (Intermediate, Uncoded 05/06/25 19:21) Hives Medication List - Last Reconciled 05/06/25 by Amarjit Jones MD pantoprazole 40 mg PO DAILY Tobacco use date assessed: 04/17/25 Dental Screening Dental Screen Date: 12/26/24 [facility] Medical History (Updated 12/26/24 @ 16:39 by NAHID Garcia) Vaginal lesion Osteoarthritis of right hip Encounter to establish care Right hip pain Obesity Surgical History (Updated 04/17/25 @ 16:00 by LILY Ayon) History of left hip replacement History of colonoscopy (~10/06/23) Hx of cholecystectomy History of hip replacement H/O right knee surgery History of bilateral breast reduction surgery Family History Father Prostate cancer Heart disease Mother Skin cancer Social History (Updated 04/17/25 @ 16:00 by LILY Ayon) Housing: House Alcohol intake: current Alcohol intake frequency: holidays/special occasions only Patient Tobacco Use Status: Never used Tobacco e-Cigarette/Vaping Use: Never Used Second Hand Smoke Exposure: Yes Advance Directives Date on File: 04/21/21 service: No Current occupational status: employed 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 Kiel Merritt, Светлана Cooley, Babar Cox and colleagues, with an educational carrie from [employer]. Physical exam (Primary Care) Vital Signs: Last Vital Signs Temp 97.3 F 04/17/25 15:55 Pulse 89 04/17/25 15:55 BP 124/72 04/17/25 15:55 Pulse Ox 96 04/17/25 15:55 Oxygen Delivery Method Room Air 04/17/25 15:55 BMI result Body Mass Index 39.8 Tobacco/Smoking Status: Tobacco use Status Tobacco use date assessed 04/17/25 04/17/25 16:01 Patient Tobacco Use Status Never used Tobacco 04/17/25 16:01 e-Cigarette/Vaping Use Never Used 04/17/25 16:01 Thrive Assessment: Date of Thrive Assessment Date Thrive assessed 04/10/25 04/17/25 16:01 Coding Level of Care Code Est Pt Prev Care 40-64y(97499) Diagnoses Annual physical exam Z00.00 Assessment & Plan Assessment & Plan (1) Annual physical exam: Code(s): Z00.00 - Encounter for general adult medical examination without abnormal findings Plan: History of Present Illness - The patient is a 54-year-old female presenting with a wellness visit and management of gastroesophageal reflux disease (GERD). - She reports new symptoms of acid reflux and heartburn, managed with oogq-zhu-ithzaov omeprazole, which she takes once or twice daily. - After an initial eight-week course of omeprazole, she stopped for two weeks, experienced symptom recurrence, and resumed the medication. - Preventative care measures include a due mammogram and a scheduled female exam in September. - She had a hip replacement in October, which was successful, with no current complications reported. Social History - Employment: The patient is working and reports being able to perform all activities of daily living, including driving at night. Review of Systems - Gastrointestinal: Reports symptoms of acid reflux and heartburn. Denies any other gastrointestinal symptoms. - Musculoskeletal: Denies any current issues post-hip replacement. - Ophthalmologic: Denies vision problems, including halos around lights. Physical Exam General: Cooperative and healthy appearing Nutritional Appearance: Well nourished Orientation/consciousness: Patient oriented x3 Limitations: No limitations Head: Normal to inspection General: Appearance normal, both eyes and all related structures Neck: Normal visual inspection Chest: Normal palpation of entire chest wall Respiratory: N ormal respiratory effort Neurology: Patient oriented x3, able to perform activities of daily living, no issues with driving at night, vision is good, no halos around lights. Results Plan 1. Gastroesophageal Reflux Disease (Gerd) - Continue pantoprazole for three months and reassess symptoms. - Consider further diagnostic testing if symptoms persist. 2. Preventative Care: Mammogram Due - Schedule and complete mammogram promptly. 3. Preventative Care: Upcoming Female Exam - Ensure completion of female exam in September. 4. Status Post Hip Replacement - No intervention needed as the patient reports no issues. Discussion Notes I discussed with the patient the continuation of pantoprazole for her GERD symptoms and the importance of reassessment after three months. We also talked about the need for a mammogram and the upcoming female exam, emphasizing the importance of these preventative measures. I advised her to use the patient portal for any further communication or concerns. Patient Instructions - Continue taking pantoprazole as prescribed for three months. - Schedule and complete your mammogram as soon as possible. - Ensure your female exam is scheduled and completed in September. - Use the patient portal for any questions or concerns. Medications: New pantoprazole 40 mg PO DAILY 90 tabs 1RF
[2025-04-17 15:55] VITALS: BP 124/72; PULSE 89; TEMP 36.3; O2SAT 96; BMI 39.8
== END 2025-04-17 16:43 | disposition home or self-care (01) ==
LOC: HO.HMCH 15:49
PROVIDERS: PCP Internal Medicine; Visit Provider Internal Medicine
DX: Z00.00 Encounter for general adult medical examination without abnormal findings (principal)

== ENCOUNTER → 2025-04-17 15:49 | Outpatient (BNVA) | payer BC, SELFPAY | PROVIDERS: PCP Internal Medicine; Visit Provider Internal Medicine | DX: Z13.89 Encounter for screening for other disorder (principal) ==

== ENCOUNTER 2025-08-14 14:59 | Outpatient (REF) | payer BC, SELFPAY ==
[2025-08-15 14:25] LABS: Chlamydia pneumoniae PCR Not Detected (Not Detect.); Coronavirus 229E PCR Not Detected (Not Detect.); Coronavirus HKU1 PCR Not Detected (Not Detect.); Coronavirus NL63 PCR Not Detected (Not Detect.); Coronavirus OC43 PCR Not Detected (Not Detect.); RSV PCR Not Detected (Not Detect.); Rhino/Enterovirus PCR Not Detected (Not Detect.)
[2025-08-15 15:03] LABS: Influenza A H1 PCR Not Detected (Not Detect.); Influenza A H1-2009 PCR Not Detected (Not Detect.); Influenza A H3 PCR Not Detected (Not Detect.); SARS-CoV-2 PCR Not Detected (Not Detect.)
== END 2025-08-14 15:00 | disposition home or self-care (01) ==
LOC: HO.LNP 14:59
PROVIDERS: PCP Internal Medicine; Visit Provider Physician Assistant Medical
DX: R05.1 Acute cough (principal)
CPT/HCPCS: 87633

== ENCOUNTER 2025-08-14 14:59 | Outpatient (AMB) | payer BC, SELFPAY ==
--- NOTE | 2025-08-14 15:16 | AM.OFFWIN_ITS ---
Intake Vital Signs 08/14/25 15:17 Height 4 ft 11 in Weight 195 lb BMI 39.4 BP 128/86 Blood Pressure Location Lt brachial Position Sitting Pulse 90 Pulse Source Pulse Oximeter Temp 98.1 F Temp Source Oral Pulse Oximetry (%) 97 Oxygen Delivery Method Room Air Intake Visit Reasons: EP cough [phone] Intake Note: pt present with chest heaviness with cough, SOB x4 weeks Patient Tobacco Use Status: Never used Tobacco Allergies Iodinated Contrast Media (Contrast Dye) Allergy (Intermediate, Verified 08/14/25 15:19) Hives Do you need a note to return to daycare/school/sports/work: No HPI HPI Comments History of Present Illness Details History - The patient is a 55-year-old female pr esenting with a persistent cough. - The cough has persisted for approximat roni four and a half weeks without improvement. - The patient reports the cough is dry a nd worsens at night, particularly when lying down. - There is no history of fever, wheezing , or shortness of breath. - The patient has a history of gastroeso phageal reflux disease, managed with pantoprazole, with no recent exacerbations. - The cough began following a cold appro ximately four weeks ago, suggesting a possible progression to viral bronchitis. - The patient denies smoking and has no known allergies to antibiotics. Physical Exam General: Cooperative, healthy appearing, comfortable and no acute distress Orientation/consciousness: Patient oriented x3 Limitations: No limitations Head: Normal to inspection Ears: Hearing grossly normal bilaterally, external ears normal and TM's normal bilaterally Nose: Normal external nose present, normal nares present, and no nasal discharge present. Face and sinus: Sinuses nontender to palpation. Mouth: Normal oral and palatal mucosa present and moist mucous membranes noted. Throat: Tonsils normal. Uvula is midline. Posterior oropharynx with erythema and no exudates. Eyes: Appearance normal, both eyes and all related structures Neck: Normal visual inspection, full ROM. No lymphadenopathy noted. Respiratory: Clear to auscultation bilaterally. Normal respiratory effort, able to speak in complete sentences. No respiratory distress, not tachypneic, no tripod positioning and no use of accessory muscles. Cardiovascular: Regular rate and rhythm. Normal S1 and S2 Skin: No rashes or lesions noted Patient was informed and verbally consented to the use of an ambient scribe for clinic note documentation during this visit REPLACED BY [facility] Medical History (Updated 12/26/24 @ 16:39 by NAHID Garcia) Vaginal lesion Osteoarthritis of right hip Encounter to establish care Right hip pain Obesity Surgical History (Updated 04/17/25 @ 16:00 by LILY Ayon) History of left hip replacement History of colonoscopy (~10/06/23) Hx of cholecystectomy History of hip replacement H/O right knee surgery History of bilateral breast reduction surgery Family History Father Prostate cancer Heart disease Mother Skin cancer Social History (Updated 04/17/25 @ 16:00 by LILY Ayon) Housing: House Alcohol intake: current Alcohol intake frequency: holidays/special occasions only Patient Tobacco Use Status: Never used Tobacco e-Cigarette/Vaping Use: Never Used Second Hand Smoke Exposure: Yes Advance Directives Date on File: 04/21/21 service: No Current occupational status: employed 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 Sexual orientation: Straight/Heterosexual Gender identity: Female Cognitive needs: No Hearing needs: No Vision needs: Yes (Glasses) Female Reproductive History Menstrual Age of Menarche: 13 Review of Systems Const All systems reviewed & are unremarkable except as noted in HPI and below Physical Exam Vital Signs: Last Vital Signs Temp 98.1 F 08/14/25 15:17 Pulse 90 08/14/25 15:17 BP 128/86 08/14/25 15:17 Pulse Ox 97 08/14/25 15:17 Oxygen Delivery Method Room Air 08/14/25 15:17 BMI result Body Mass Index 39.4 Assessment & Plan Assessment & Plan (1) Cough: Code(s): R05.9 - Cough, unspecified Qualifiers: Cough type: acute Qualified Code(s): R05.1 - Acute cough Plan Most likely URI vs viral illness vs pneumonia vs covid vs bronchitis vs gastritis plan - Plan includes a viral swab to rule out viral infection. - Prescribed medications include cough medicine, an inhaler, prednisone, and antibiotics to address potential secondary infection. - Continue current management with pantoprazole - Prescribed antibiotics to cover potential secondary bacterial infection. - tylenol or motrin as needed for fever - will call with the results - Advised to monitor symptoms and follow up if no improvement. Orders: Orders Resp Pathogen [place] [facility] [place] J06.9 - Acute upper respiratory infection, unspecified Medications: New albuterol sulfate 90 mcg/actuation 2 puffs inhalation Q6H PRN 8.5 grams 0RF shortness of breath or wheezing or cough azithromycin For 250 mg dose pack: take 500 mg today (day 1), then 250 mg for 4 days (days 2-5) PO 6 tabs 0RF prednisone 40 mg (2 x 20 mg) PO DAILY 10 tabs 0RF 5 days benzonatate 100 mg PO bid-tid PRN 21 caps 0RF Cough 7 days Coding Level of Care Code Est Pt Level 3 (30318) Diagnoses Acute cough R05.1 Cough type: acute
[2025-08-14 15:17] VITALS: BP 128/86; PULSE 90; TEMP 36.7; O2SAT 97; BMI 39.4
== END 2025-08-14 16:18 | disposition home or self-care (01) ==
PROVIDERS: PCP Internal Medicine; Visit Provider Physician Assistant Medical
DX: R05.1 Acute cough (principal)